=== PATIENT | female | born 1935 | race Caucasian/White ===

== ENCOUNTER 2017-09-18 19:20 | Inpatient (IN) | payer MEDICARE, BC ==
[2017-09-18] MEDS ORDERED: SODIUM CHLORIDE 0.9% 1,000 ML IV STA (19:29)
[2017-09-18] MEDS ORDERED: FUROSEMIDE 10 MG/ML 4 ML VIAL IV STA (19:29)
[2017-09-18] MEDS ORDERED: IPRATROPIUM 0.5 MG/2.5 ML NEBU INHALATION STA (19:29)
[2017-09-18] MEDS ORDERED: ALBUTEROL NEBULIZED 2.5 MG/3 ML INHALATION STA (19:29)
[2017-09-18] MEDS ORDERED: NITROGLYCERIN OINT 1 INCH/GM PACKET TOPICAL STA (19:29)
[2017-09-18] MEDS ORDERED: DILTIAZEM 125 MG in SODIUM CHLORIDE 0.9% 100 ML IV ONE (19:45)
--- NOTE | 2017-09-18 19:45 | XR ---
EXAMINATION TYPE: XR chest 1V portable DATE OF EXAM: 09/18/2017 COMPARISON: NONE HISTORY: Short of breath TECHNIQUE: Single frontal view of the chest is obtained. FINDINGS: There is diffuse pulmonary edema. There is patchy consolidation in both lungs. Thoracic ao rta is atheromatous. There are chest leads. IMPRESSION: Extensive pulmonary infiltrates. I would consider congestive heart failure or RDS.
[2017-09-18 19:48] LABS: Basophils # (A) 0.2 k/uL (0-0.2); Basophils % (A) 1 %; CH 28.6; CHCM 30.5; Eosinophils # (A) 0.2 k/uL (0-0.7); Eosinophils % (A) 1 %; HDW 2.47; HGB 14.6 gm/dL (11.4-16.0); Hypochromasia Moderate; Luc # (Auto) 0.43; Luc % (Auto) 2; MCH 28.6 pg (25.0-35.0); MCHC 30.4 g/dL (31.0-37.0); MCV 94.2 fL (80.0-100.0); Mean Platelet Volume 7.6; Monocytes # (A) 0.9 k/uL (0-1.0); Monocytes % (A) 4 %; Neutrophils # (A) 13.4 k/uL (1.3-7.7); Neutrophils % (A) 56 %; RDW 14.8 % (11.5-15.5); WBC 24.1 k/uL (3.8-10.6); WBC (Perox) 22.68
[2017-09-18 19:51] LABS: Lymphocytes % (A) 37 %
[2017-09-18 19:54] LABS: ALT 33 U/L (9-52); AST 23 U/L (14-36); Alkaline Phosphatase 133 U/L (38-126); Anion Gap 14 mmol/L; Blood Urea Nitrogen 19 mg/dL (7-17); Calcium 9.6 mg/dL (8.4-10.2); Carbon Dioxide 22 mmol/L (22-30); Chloride 102 mmol/L (98-107); Glucose 261 mg/dL (74-99); Non-African American GFR(MDRD) >60 (>60 ml/min/1.73 sqM); Potassium 4.4 mmol/L (3.5-5.1); Sodium 138 mmol/L (137-145); Total Bilirubin 1.7 mg/dL (0.2-1.3)
[2017-09-18] MEDS ORDERED: cefTRIAXone IN SWFI 2,000 MG/20 ML SYRINGE IVP STA (20:12)
[2017-09-18] MEDS ORDERED: LORazepam 2 MG/ML INJ IV STA (20:12)
[2017-09-18 20:14] LABS: Creatine Kinase MB 1.8 ng/mL (0.0-2.4)
[2017-09-18] MEDS ORDERED: AZITHROMYCIN 500 MG in SODIUM CHLORIDE 0.9% 250 ML IVPB STA (20:14)
[2017-09-18 20:15] LABS: INR 2.3 (<1.2); Prothrombin Time 21.8 sec (9.0-12.0)
[2017-09-18 20:16] LABS: ABG HCO3 24 mmol/L (21-25); ABG PCO2 45 mmHg (35-45); ABG PH 7.34 (7.35-7.45); ABG PO2 141 mmHg (83-108); ABG TCO2 25 mmol/L (19-24)
[2017-09-18 20:17] LABS: ABG Base Excess -1.4 mmol/L
[2017-09-18 20:19] LABS: Troponin I 0.06 ng/mL (0.000-0.034)
[2017-09-18] MEDS ORDERED: RX INFO: IV CONTRAST WAS GIVEN 1 EACH MISC MISCELLANE PRN (21:09)
[2017-09-18] MEDS ORDERED: PIPERACILLIN-TAZOBACTAM 3.375 GM in DEXTROSE/WATER 1 50ML.BAG IVPB STA (21:19)
--- NOTE | 2017-09-18 21:20 | ED ---
SOB HPI - General Chief Complaint: Shortness of Breath Stated Complaint: LUCIANO Time Seen by Provider: 09/18/17 19:28 Source: patient, family Mode of arrival: wheelchair Limitations: physical limitation - History of Present Illness Initial Comments: 81 years old female was with her daughter today daughter noticed that she was coughing last night she had A breathing and a she was she was spitting up some phlegm she also noticed her heart rate was quite fast she had a bit of a fever as well. On her way to the aspirin she developed some chest pain to that when she arrived she was quite dyspneic and she was not in a position to give any review of system this was from her daughter she stated no headaches no neck stiffness severe shortness of breath mild chest pain no abdominal pain no frequency urgency dysuria no symptoms of TIA or CVA - Related Data Home Medications Medication Instructions Recorded Confirmed Acetaminophen [Tylenol] 325 mg PO Q4H PRN 09/18/17 09/18/17 Aspirin [Adult Low Dose Aspirin EC] 81 mg PO DAILY 09/18/17 09/18/17 Atorvastatin Calcium [Lipitor] 20 mg PO DAILY 09/18/17 09/18/17 Cholecalciferol [Vitamin D3] 2,000 unit PO DAILY 09/18/17 09/18/17 Cranberry Fruit Extract [Cranberry] 200 mg PO BID 09/18/17 09/18/17 Digoxin [Lanoxin] 125 mcg PO DAILY 09/18/17 09/18/17 Diltiazem HCl [Diltiazem ER] 180 mg PO DAILY 09/18/17 09/18/17 Ferrous Sulfate [Iron] 325 mg PO BID 09/18/17 09/18/17 Furosemide [Lasix] 40 mg PO DAILY 09/18/17 09/18/17 Insulin Glargine,Hum.rec.anlog 32 unit SQ HS 09/18/17 09/18/17 [Lantus Solostar] Insulin Glargine,Hum.rec.anlog 33 unit SQ DAILY 09/18/17 09/18/17 [Lantus Solostar] L.acidoph,Paracasei, B.lactis 1 cap PO BID 09/18/17 09/18/17 [Probiotic] Magnesium Chloride [Mag64] 64 mg PO DAILY 09/18/17 09/18/17 Metoprolol Tartrate [Lopressor] 50 mg PO BID 09/18/17 09/18/17 Multivitamins, Thera [Multivitamin 1 tab PO DAILY 09/18/17 09/18/17 (formulary)] Omeprazole [PriLOSEC] 20 mg PO BID 09/18/17 09/18/17 Potassium Chloride [Klor-Con 20] 20 meq PO DAILY 09/18/17 09/18/17 Vit C/E/Zn/Coppr/Lutein/Zeaxan 1 cap PO DAILY 09/18/17 09/18/17 [Preservision Areds 2 Softgel] Warfarin Sodium 1 mg PO MOWEFR 09/18/17 09/18/17 Warfarin Sodium [Coumadin] 6 mg PO DAILY 09/18/17 09/18/17 glipiZIDE [Glucotrol] 2.5 mg PO BID 09/18/17 09/18/17 Allergies Allergy/AdvReac Type Severity Reaction Status Date / Time codeine Allergy Confusion Verified 09/18/17 19:36 Review of Systems ROS Statement: Those systems with pertinent positive or pertinent negative responses have been documented in the HPI. ROS Other: All systems not noted in ROS Statement are negative. Past Medical History Past Medical History: CVA/TIA, Diabetes Mellitus, Deep Vein Thrombosis (DVT), Hypertension Additional Past Medical History / Comment(s): AFIB History of Any Multi-Drug Resistant Organisms: None Reported Past Surgical History: Unable to Obtain Additional Past Surgical History / Comment(s): eyes Past Psychological History: No Psychological Hx Reported Smoking Status: Unknown if ever smoked Past Alcohol Use History: None Reported Past Drug Use History: None Reported General Exam - General Exam Comments Initial Comments: General: The patient is awake and severe distress respiratory rate is very fast having hard time talking Skin: Skin is warm and dry and no rashes or lesions are noted. Eye: Pupils are equal, round and reactive to light, extra-ocular movements are intact; there is normal conjunctiva bilaterally. Ears, nose, mouth and throat: There are moist mucous membranes and no oral lesions. Neck: The neck is supple, there is no tenderness pos JVD. Cardiovascular: There is a regular heartbeat and is quite fast Respiratory: To auscultation lateral noticed crackles at the bases Gastrointestinal: Soft, non-distended, non-tender abdomen without masses or organomegaly noted. There is no rebound or guarding present. Bowel sounds are unremarkable. Back: There is no tenderness to palpation in the midline. There is no obvious deformity. Musculoskeletal: Normal ROM, no tenderness, There is no pedal edema. There is no calf tenderness or swelling. No cords were appreciated. Neurological: CN II-XII intact, Cranial nerves III through XII are intact. There are no obvious motor or sensory deficits. Coordination appears grossly intact. Speech is normal. Psychiatric: Cooperative, appropriate mood & affect, normal judgment. Limitations: physical limitation Course Vital Signs 09/18/17 09/18/17 09/18/17 19:23 20:00 20:12 Temperature Pulse Rate 150 H 128 H 138 H Respiratory 34 H Rate Blood Pressure 154/96 O2 Sat by Pulse 80 L Oximetry 09/18/17 09/18/17 09/18/17 20:13 20:23 20:25 Temperature Pulse Rate 138 H 140 H 148 H Respiratory 30 H Rate Blood Pressure O2 Sat by Pulse Oximetry 09/18/17 21:17 Temperature 99.9 F H Pulse Rate 133 H Respiratory 20 Rate Blood Pressure 106/64 O2 Sat by Pulse 93 L Oximetry Him EKG is a defibrillation with the rapid ventricular response ventricular rate is 145 QRS duration is 138 QT/QTc is 324/503 and 50 mL EKG is full of artifact this is the complex is some block like ventricular tachycardia as well looks like intraventricular block we've and definitely looks like a wide- complex with that there is a question of for block as well 8 to looks like a block Medical Decision Making - Lab Data Result diagrams: 09/18/17 19:30 09/18/17 19:30 Lab Results 09/18/17 09/18/17 09/18/17 Range/Units 19:30 19:30 19:30 WBC 24.1 H (3.8-10.6) k/uL RBC 5.10 (3.80-5.40) m/uL Hgb 14.6 (11.4-16.0) gm/dL Hct 48.0 H (34.0-46.0) % MCV 94.2 (80.0-100.0) fL MCH 28.6 (25.0-35.0) pg MCHC 30.4 L (31.0-37.0) g/dL RDW 14.8 (11.5-15.5) % Plt Count 284 (150-450) k/uL Neutrophils % 56 % Lymphocytes % 37 % Monocytes % 4 % Eosinophils % 1 % Basophils % 1 % Neutrophils # 13.4 H (1.3-7.7) k/uL Lymphocytes # 9.0 H (1.0-4.8) k/uL Monocytes # 0.9 (0-1.0) k/uL Eosinophils # 0.2 (0-0.7) k/uL Basophils # 0.2 (0-0.2) k/uL Hypochromasia Moderate PT (9.0-12.0) sec INR (<1.2) APTT (22.0-30.0) sec D-Dimer (<0.60) mg/L FEU Sample Site ABG pH (7.35-7.45) ABG pCO2 (35-45) mmHg ABG pO2 (83-108) mmHg ABG HCO3 (21-25) mmol/L ABG Total CO2 (19-24) mmol/L ABG O2 Saturation (94-97) % ABG Base Excess mmol/L FiO2 % Sodium 138 (137-145) mmol/L Potassium 4.4 (3.5-5.1) mmol/L Chloride 102 (98-107) mmol/L Carbon Dioxide 22 (22-30) mmol/L Anion Gap 14 mmol/L BUN 19 H (7-17) mg/dL Creatinine 0.70 (0.52-1.04) mg/dL Est GFR (MDRD) Af Amer >60 (>60 ml/min/1.73 sqM) Est GFR (MDRD) Non-Af >60 (>60 ml/min/1.73 sqM) Glucose 261 H (74-99) mg/dL Calcium 9.6 (8.4-10.2) mg/dL Total Bilirubin 1.7 H (0.2-1.3) mg/dL AST 23 (14-36) U/L ALT 33 (9-52) U/L Alkaline Phosphatase 133 H (38-126) U/L Total Creatine Kinase 96 (30-135) U/L CK-MB (CK-2) 1.8 (0.0-2.4) ng/mL CK-MB (CK-2) Rel Index 1.9 Troponin I 0.060 H* (0.000-0.034) ng/mL NT-Pro-B Natriuret Pep pg/mL Total Protein 8.0 (6.3-8.2) g/dL Albumin 4.3 (3.5-5.0) g/dL 09/18/17 09/18/17 09/18/17 Range/Units 19:30 19:30 19:55 WBC (3.8-10.6) k/uL RBC (3.80-5.40) m/uL Hgb (11.4-16.0) gm/dL Hct (34.0-46.0) % MCV (80.0-100.0) fL MCH (25.0-35.0) pg MCHC (31.0-37.0) g/dL RDW (11.5-15.5) % Plt Count (150-450) k/uL Neutrophils % % Lymphocytes % % Monocytes % % Eosinophils % % Basophils % % Neutrophils # (1.3-7.7) k/uL Lymphocytes # (1.0-4.8) k/uL Monocytes # (0-1.0) k/uL Eosinophils # (0-0.7) k/uL Basophils # (0-0.2) k/uL Hypochromasia PT 21.8 H (9.0-12.0) sec INR 2.3 H (<1.2) APTT 30.0 (22.0-30.0) sec D-Dimer 0.78 H (<0.60) mg/L FEU Sample Site RRAD ABG pH 7.34 L (7.35-7.45) ABG pCO2 45 (35-45) mmHg ABG pO2 141 H (83-108) mmHg ABG HCO3 24 (21-25) mmol/L ABG Total CO2 25 H (19-24) mmol/L ABG O2 Saturation 99.0 H (94-97) % ABG Base Excess -1.4 mmol/L FiO2 100 % Sodium (137-145) mmol/L Potassium (3.5-5.1) mmol/L Chloride (98-107) mmol/L Carbon Dioxide (22-30) mmol/L Anion Gap mmol/L BUN (7-17) mg/dL Creatinine (0.52-1.04) mg/dL Est GFR (MDRD) Af Amer (>60 ml/min/1.73 sqM) Est GFR (MDRD) Non-Af (>60 ml/min/1.73 sqM) Glucose (74-99) mg/dL Calcium (8.4-10.2) mg/dL Total Bilirubin (0.2-1.3) mg/dL AST (14-36) U/L ALT (9-52) U/L Alkaline Phosphatase (38-126) U/L Total Creatine Kinase (30-135) U/L CK-MB (CK-2) (0.0-2.4) ng/mL CK-MB (CK-2) Rel Index Troponin I (0.000-0.034) ng/mL NT-Pro-B Natriuret Pep 2280 pg/mL Total Protein (6.3-8.2) g/dL Albumin (3.5-5.0) g/dL Critical Care Time Total Critical Care Time: 60 Critical Care Time: 82 years old lady came in respiratory failure, respiratory rate was approaching 30 she was using accessory muscles auscultation revealed congestive heart failure she was started on a BiPAP right away will be dictated the nitro paste and a she was given Lasix 60 mg IV later noticed that she has atrial fibrillation with rapid ventricular response at that point the Cardizem drip was started and review of the chest x-ray revealed pneumonia as well as congestive heart failure block and after the chest x-ray she was started on now Rocephin and Zithromax per worse noticed white count was quite elevated Rocephin was changed to Zosyn BNP is quite elevated troponin is quite elevated plan to send her to ICU Dr. Gaviria or has been paged patient be admitted to Dr. Palm I spoke with him already and definitely profiler consulted, she is on Coumadin INR is 2.3 she is noted be on any heparin and/or d-dimer is quite elevated Disposition Clinical Impression: Respiratory failure, Pneumonia, Atrial fibrillation with RVR, Myocardial infarction Disposition: ADMITTED IP TO THIS HOSP Condition: Good Referrals: Karl Bennett MD [Primary Care Provider] - 1-2 days
[2017-09-18] MEDS ORDERED: NALOXONE 0.4 MG/ML 1 ML VIAL IV PRN (21:31)
[2017-09-18] MEDS ORDERED: MORPHINE SULFATE 10 MG/ML SYRINGE IV PRN (21:31)
--- NOTE | 2017-09-18 22:19 | CT ---
EXAMINATION TYPE: CT angio chest DATE OF EXAM: 09/18/2017 9:55 PM COMPARISON: NONE HISTORY: Shortness of breath CT DLP: 574.8 mGycm Automated exposure control for dose reduction was used. CONTRAST: CTA scan of the thorax is performed with IV Contrast, patient injected with 100 mL of Omnipaque 350, pulmonary embolism protocol. There are 3-D post processed images.. FINDINGS: There are bilateral pleural effusions. There is bilateral patchy pneumonic consolidation. There is ex tensive groundglass interstitial infiltrate in the mid and upper lung roger. There is coalescent den sity in both lungs. The thoracic aorta is atheromatous. There is no sign of aneurysm or dissection. Heart is enlarged. I see no filling defects in the pulmonary arteries. There is thoracic kyphotic deformity with hypertr ophic spurring anteriorly throughout the thoracic spine. IMPRESSION: ATHEROMATOUS AORTA. PLEURAL EFFUSIONS WITH EXTENSIVE BILATERAL PULMONARY INFILTRATES CONSISTENT WITH HEART FAILURE AND RDS. NO EVIDENCE OF PULMONARY EMBOLISM.
[2017-09-18 22:42] LABS: Glucose,Whole Blood 225 mg/dL (75-99)
[2017-09-19] MEDS ORDERED: DIGOXIN 250 MCG/ML 2 ML AMP IVP ONE (00:09)
[2017-09-19] MEDS ORDERED: DIGOXIN 250 MCG/ML 2 ML AMP ONE (00:42)
[2017-09-19] MEDS ORDERED: LORazepam 2 MG/ML INJ IV PRN (01:32)
[2017-09-19 01:45] LABS: Glucose,Whole Blood 212 mg/dL (75-99)
[2017-09-19 01:55] LABS: Appearance,Urine Cloudy (Clear); Bacteria,Urine Rare /hpf; Bilirubin,Urine Negative (Negative); Glucose,Urine (UA) Negative (Negative); Granular Casts,Urine 44 /lpf (0); Ketones,Urine Negative (Negative); Leukocyte Esterase,Urine Large (Negative); Mucus,Urine Rare /hpf; Nitrite,Urine Negative (Negative); PH, Urine 5.5 (5.0-8.0); Particle Count 6685; Protein,Urine 1+ (Negative); RBC,Urine 7 /hpf (0-5); Specific Gravity,Urine 1.031 (1.001-1.035); Squamous Epithelial Cell,Urine 2 /hpf (0-4); UA Billing (MACRO vs. MICRO) MICRO; Urobilinogen,Urine <2.0 mg/dL (<2.0); WBC,Urine 25 /hpf (0-5)
[2017-09-19] MEDS: INSULIN ASPART 100 UNIT/ML 1 ML 10 ML VIAL SQ SCH ×5 (02:16→20:50)
[2017-09-19 05:28] LABS: Anisocytosis Slight; Basophils # (A) 0.1 k/uL (0-0.2); Basophils % (A) 1 %; CH 27.8; CHCM 30.7; Eosinophils # (A) 0.1 k/uL (0-0.7); Eosinophils % (A) 1 %; HCT 38.2 % (34.0-46.0); HDW 2.29; HGB 11.7 gm/dL (11.4-16.0); Hypochromasia Slight; Luc # (Auto) 0.17; Luc % (Auto) 2; Lymphocytes # (A) 2.3 k/uL (1.0-4.8); Lymphocytes % (A) 22 %; MCH 27.9 pg (25.0-35.0); MCHC 30.7 g/dL (31.0-37.0); MCV 91.1 fL (80.0-100.0); Mean Platelet Volume 8.1; Monocytes # (A) 0.7 k/uL (0-1.0); Monocytes % (A) 7 %; Neutrophils # (A) 7.3 k/uL (1.3-7.7); Neutrophils % (A) 69 %; RBC 4.19 m/uL (3.80-5.40); RDW 16.1 % (11.5-15.5); WBC 10.5 k/uL (3.8-10.6); WBC (Perox) 11.11
[2017-09-19 05:38] LABS: ALT 32 U/L (9-52); AST 21 U/L (14-36); Alkaline Phosphatase 79 U/L (38-126); Anion Gap 6 mmol/L; Blood Urea Nitrogen 24 mg/dL (7-17); Calcium 8.3 mg/dL (8.4-10.2); Carbon Dioxide 28 mmol/L (22-30); Chloride 104 mmol/L (98-107); Glucose 165 mg/dL (74-99); Magnesium 1.7 mg/dL (1.6-2.3); Non-African American GFR(MDRD) >60 (>60 ml/min/1.73 sqM); Phosphorus 5.2 mg/dL (2.5-4.5); Potassium 4.5 mmol/L (3.5-5.1); Sodium 138 mmol/L (137-145); Total Bilirubin 1.1 mg/dL (0.2-1.3); Total Protein 5.9 g/dL (6.3-8.2)
[2017-09-19] MEDS ORDERED: Magnesium Replacement Protocol 1 EACH MISC MISCELLANE PRN (06:47)
[2017-09-19 06:56] LABS: Glucose,Whole Blood 156 mg/dL (75-99)
--- NOTE | 2017-09-19 07:04 | XR ---
EXAMINATION TYPE: XR chest 1V portable DATE OF EXAM: 09/19/2017 CLINICAL HISTORY: Difficulty breathing progress study. TECHNIQUE: Single AP portable upright view of the chest is obtained. COMPARISON: Chest x-ray and CTA chest from one day earlier FINDINGS: There is interval persistent but improving bilateral multifocal areas of opacity. There ar e persistent small bilateral pleural effusions and cardiomegaly with atherosclerotic thoracic aorta. Bilateral hilar prominence consistent with underlying pulmonary artery hypertension is redemonstrated . Osseous structures are intact. IMPRESSION: Persistent cardiomegaly and small bilateral pleural effusions felt stable. Improving but persistent multifocal bilateral edema and/or infiltrates are noted.
[2017-09-19] MEDS: BUDESONIDE 0.5 MG/2 ML NEBU INHALATION SCH ×2 (07:45→20:05)
[2017-09-19] MEDS: IPRATROPIUM-ALBUTEROL 3 ML NEB INHALATION PRN ×4 (07:45→20:05)
[2017-09-19] MEDS: MAGNESIUM SULFATE-D5W PMX 1 GM in DEXTROSE/WATER 1 100ML.BAG IVPB SCH ×2 (08:01→09:38)
[2017-09-19] MEDS ORDERED: DILTIAZEM HCL 180 MG PO SCH (09:00)
[2017-09-19] MEDS ORDERED: FUROSEMIDE 40 MG TAB PO SCH (09:00)
[2017-09-19] MEDS ORDERED: NON-FORMULARY DRUG (Cranberry Fruit Extract [Cranberry] 200 MG) PO SCH (09:00)
[2017-09-19] MEDS: FUROSEMIDE 10 MG/ML 4 ML VIAL IV SCH ×3 (09:37→23:23)
[2017-09-19] MEDS: PANTOPRAZOLE 40 MG TABLET PO SCH ×3 (10:07→17:49)
[2017-09-19] MEDS: PIPERACILLIN-TAZOBACTAM 3.375 GM in DEXTROSE/WATER 1 50ML.BAG IVPB SCH ×3 (10:21→23:29)
[2017-09-19] MEDS: DILTIAZEM 125 MG in SODIUM CHLORIDE 0.9% 100 ML IV SCH ×2 (10:26→23:22)
[2017-09-19] MEDS: FERROUS SULFATE 325 MG TAB PO SCH ×2 (10:28→20:37)
[2017-09-19] MEDS: cefTRIAXone IN SWFI 1,000 MG/10 ML SYRINGE IVP SCH (10:28)
[2017-09-19] MEDS: ATORVASTATIN 20 MG TAB PO SCH (10:28)
[2017-09-19] MEDS: ASPIRIN 81 MG PO SCH (10:28)
[2017-09-19] MEDS: LACTOBACILLUS ACIDOPH & BULGAR 1 EACH PACKET PO SCH ×2 (10:29→20:36)
[2017-09-19] MEDS: POTASSIUM CHLORIDE ER 20 MEQ TAB.ER PO SCH ×2 (10:30→10:51)
[2017-09-19] MEDS: VIT A,C & E-LUTEIN-MINERALS 1 EACH TAB PO SCH ×2 (10:31→13:46)
[2017-09-19 10:49] LABS: Glucose,Whole Blood 151 mg/dL (75-99)
[2017-09-19] MEDS: DIGOXIN 125 MCG TAB PO SCH ×2 (10:52→11:31)
[2017-09-19] MEDS: METOPROLOL TARTRATE 50 MG TAB PO SCH ×4 (10:52→23:22)
[2017-09-19] MEDS: INSULIN DETEMIR 100 UNIT/ML 10 ML VIAL SQ SCH ×2 (10:52→20:37)
--- NOTE | 2017-09-19 11:32 | P.CRDCN ---
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 The patient has been experiencing cough productive of sputum associated with fever. She was more short of breath. She also describes what it seems to be atypical chest discomfort. The symptoms started just 24 hours before she was brought to the hospital. No dizziness or lightheadedness and no syncope. When she came in to the hospital she was in A. fib with RVR and currently she is in A. fib with heart rate around 100. She is on Cardizem IV at 10 mg per hour and she is on metoprolol at 50 mg by mouth twice a day. The patient is on Coumadin for anticoagulation. The patient had a chest x-ray showed what it seems to be bilateral pleural effusion and CHF finding. The EKG revealed A. fib with RVR. The BNP came in to be around 3000s. The cardiac enzymes were checked and came in to be slightly abnormal. The patient does have significant murmur seems to be consistent with aortic stenosis. Past Medical History Past Medical History: Atrial Fibrillation, Heart Failure, CVA/TIA, Diabetes Mellitus, Deep Vein Thrombosis (DVT), Eye Disorder, Hyperlipidemia, Hypertension , Sleep Apnea/CPAP/BIPAP Additional Past Medical History / Comment(s): AFIB History of Any Multi-Drug Resistant Organisms: None Reported Past Surgical History: Unable to Obtain Additional Past Surgical History / Comment(s): Hallie filter Past Anesthesia/Blood Transfusion Reactions: Unable to Obtain Past Psychological History: No Psychological Hx Reported Smoking Status: Unknown if ever smoked Past Alcohol Use History: None Reported Past Drug Use History: None Reported Medications and Allergies Home Medications Medication Instructions Recorded Confirmed Type Acetaminophen [Tylenol] 325 mg PO Q4H PRN 09/18/17 09/18/17 History Aspirin [Adult Low Dose Aspirin EC] 81 mg PO DAILY 09/18/17 09/18/17 History Atorvastatin Calcium [Lipitor] 20 mg PO DAILY 09/18/17 09/18/17 History Cholecalciferol [Vitamin D3] 2,000 unit PO DAILY 09/18/17 09/18/17 History Cranberry Fruit Extract [Cranberry] 200 mg PO BID 09/18/17 09/18/17 History Digoxin [Lanoxin] 125 mcg PO DAILY 09/18/17 09/18/17 History Diltiazem HCl [Diltiazem ER] 180 mg PO DAILY 09/18/17 09/18/17 History Ferrous Sulfate [Iron] 325 mg PO BID 09/18/17 09/18/17 History Furosemide [Lasix] 40 mg PO DAILY 09/18/17 09/18/17 History Insulin Glargine,Hum.rec.anlog 32 unit SQ HS 09/18/17 09/18/17 History [Lantus Solostar] Insulin Glargine,Hum.rec.anlog 33 unit SQ DAILY 09/18/17 09/18/17 History [Lantus Solostar] L.acidoph,Paracasei, B.lactis 1 cap PO BID 09/18/17 09/18/17 History [Probiotic] Magnesium Chloride [Mag64] 64 mg PO DAILY 09/18/17 09/18/17 History Metoprolol Tartrate [Lopressor] 50 mg PO BID 09/18/17 09/18/17 History Multivitamins, Thera [Multivitamin 1 tab PO DAILY 09/18/17 09/18/17 History (formulary)] Omeprazole [PriLOSEC] 20 mg PO BID 09/18/17 09/18/17 History Potassium Chloride [Klor-Con 20] 20 meq PO DAILY 09/18/17 09/18/17 History Vit C/E/Zn/Coppr/Lutein/Zeaxan 1 cap PO DAILY 09/18/17 09/18/17 History [Preservision Areds 2 Softgel] Warfarin Sodium 1 mg PO MOWEFR 09/18/17 09/18/17 History Warfarin Sodium [Coumadin] 6 mg PO DAILY 09/18/17 09/18/17 History glipiZIDE [Glucotrol] 2.5 mg PO BID 09/18/17 09/18/17 History Allergies Allergy/AdvReac Type Severity Reaction Status Date / Time codeine Allergy Confusion Verified 09/18/17 19:36 Physical Exam Vitals: Vital Signs Temp Pulse Resp BP BP Pulse Ox 09/19/17 10:00 92 22 123/58 96 09/19/17 09:30 87 24 128/62 95 09/19/17 09:00 86 24 115/51 95 09/19/17 08:30 92 21 125/56 96 09/19/17 08:05 97 09/19/17 08:00 89 29 H 127/52 98 09/19/17 07:45 92 09/19/17 07:30 93 25 H 140/63 98 09/19/17 07:00 103 H 30 H 125/50 97 09/19/17 06:30 93 23 111/46 93 L 09/19/17 06:00 87 17 125/75 98 09/19/17 05:30 79 34 H 107/64 98 09/19/17 05:00 86 25 H 132/58 97 09/19/17 04:30 89 26 H 107/55 98 09/19/17 04:00 98.1 F 90 26 H 106/46 96 09/19/17 03:30 98 25 H 90/49 94 L 09/19/17 03:00 100 24 113/49 93 L 09/19/17 02:30 86 26 H 104/61 97 09/19/17 02:00 96 24 99/44 89 L 09/19/17 01:30 96 26 H 120/55 97 09/19/17 01:00 107 H 30 H 109/60 95 09/19/17 00:30 107 H 25 H 118/66 97 09/19/17 00:00 128 H 29 H 97 09/18/17 23:30 118 H 25 H 94/59 96 09/18/17 23:00 98.2 F 131 H 30 H 100/54 96 09/18/17 22:49 98.2 F 18 100/54 98 09/18/17 22:42 146 H 30 H 96 09/18/17 21:17 99.9 F H 133 H 20 106/64 93 L 09/18/17 20:25 148 H 09/18/17 20:23 140 H 09/18/17 20:13 138 H 30 H 09/18/17 20:12 138 H 09/18/17 20:00 99.9 F H 128 H 09/18/17 19:23 150 H 34 H 154/96 80 L Intake and Output 09/18/17 09/19/17 09/19/17 22:59 06:59 14:59 Intake Total 450 300 Output Total 425 315 Balance 25 -15 Intake: IV 400 70 Sodium Chloride 0.9% 1, 400 70 000 ml @ 50 mls/hr IV . Q20H [facility] Rx#:[id number] Intake, IV Titration 50 230 Amount Diltiazem 125 mg In 30 Sodium Chloride 0.9% 100 ml @ 10 MG/HR 10 mls/hr IV .[id number] ONE Rx#: [id number] Magnesium Sulfate-D5w Pmx 200 1 gm In Dextrose/Water 1 100ml.bag @ 100 mls/hr IVPB Q1H [facility] Rx#: [id number] Piperacillin-Tazobactam 3 50 .375 gm In Dextrose/Water 1 50ml.bag @ 12.5 mls/hr IVPB Q8HR [facility] Rx#: [id number] Output: Urine 425 315 Other: Voiding Method Indwelling Catheter Indwelling Catheter # Voids 0 Weight 110.8 kg 110.8 kg - Constitutional General appearance: no acute distress - Respiratory Respiratory: bilateral: rhonchi - Cardiovascular Rhythm: irregularly irregular Heart sounds: normal: S1 Abnormal Heart Sounds: systolic murmur Results 09/19/17 05:08 09/19/17 05:08 Cardiac Enzymes 09/18/17 09/18/17 09/19/17 Range/Units 19:30 19:30 05:08 AST 23 21 (14-36) U/L CK-MB (CK-2) 1.8 (0.0-2.4) ng/mL Troponin I 0.060 H* (0.000-0.034) ng/mL Coagulation 09/18/17 Range/Units 19:30 PT 21.8 H (9.0-12.0) sec APTT 30.0 (22.0-30.0) sec CBC 09/18/17 09/19/17 Range/Units 19:30 05:08 WBC 24.1 H 10.5 (3.8-10.6) k/uL RBC 5.10 4.19 (3.80-5.40) m/uL Hgb 14.6 11.7 (11.4-16.0) gm/dL Hct 48.0 H 38.2 (34.0-46.0) % Plt Count 284 204 (150-450) k/uL Comprehensive Metabolic Panel 09/18/17 09/19/17 Range/Units 19:30 05:08 Sodium 138 138 (137-145) mmol/L Potassium 4.4 4.5 (3.5-5.1) mmol/L Chloride 102 104 (98-107) mmol/L Carbon Dioxide 22 28 (22-30) mmol/L BUN 19 H 24 H (7-17) mg/dL Creatinine 0.70 0.80 (0.52-1.04) mg/dL Glucose 261 H 165 H (74-99) mg/dL Calcium 9.6 8.3 L (8.4-10.2) mg/dL AST 23 21 (14-36) U/L ALT 33 32 (9-52) U/L Alkaline Phosphatase 133 H 79 (38-126) U/L Total Protein 8.0 5.9 L (6.3-8.2) g/dL Albumin 4.3 3.0 L (3.5-5.0) g/dL Current Medications Generic Name Dose Route Start Last Admin Trade Name Jagq PRN Reason Stop Dose Admin Acetaminophen 650 mg 09/18/17 21:31 Tylenol Tab PO Q4HR PRN Fever and/or Mild Pain Albuterol/Ipratropium 3 ml 09/18/17 21:31 09/19/17 07:45 Duoneb 0.5 Mg-3 Mg/3 Ml Soln INHALATION 3 ml RT-Q4H PRN Administration Shortness Of Breath Or Wheezing Aspirin 81 mg 09/19/17 09:00 09/19/17 10:28 Aspirin PO 81 mg DAILY [facility] Administration Atorvastatin Calcium 20 mg 09/19/17 09:00 09/19/17 10:28 Lipitor PO 20 mg DAILY [facility] Administration Budesonide 0.5 mg 09/19/17 08:00 09/19/17 07:45 Pulmicort INHALATION 0.5 mg RT-BID MARC Administration Ceftriaxone Sodium 1,000 mg 09/19/17 09:00 09/19/17 10:28 Rocephin IVP 1,000 mg Q24HR [facility] Administration Cholecalciferol 2,000 unit 09/19/17 12:00 Vitamin D3 PO 1200 [facility] Digoxin 125 mcg 09/19/17 09:00 09/19/17 10:52 Lanoxin PO Not Given DAILY [facility] Ferrous Sulfate 325 mg 09/19/17 09:00 09/19/17 10:28 Feosol PO 325 mg BID M[facility] Administration Furosemide 40 mg 09/19/17 08:00 09/19/17 09:37 Lasix IV 40 mg Q8HR [facility] Administration Glipizide 2.5 mg 09/19/17 07:30 09/19/17 10:57 Glucotrol PO Not Given AC-BID [facility] Sodium Chloride 1,000 mls @ 50 mls/hr 09/18/17 19:29 09/18/17 19:35 Saline 0.9% IV 09/19/17 15:28 50 mls/hr .Q20H [facility] Administration Piperacillin/Tazobactam/ 50 mls @ 12.5 mls/hr 09/19/17 08:00 09/19/17 10:21 Dextrose 3.375 gm/ IV Solution IVPB 12.5 mls/hr Q8HR [facility] Administration Diltiazem HCl 125 mg/ Sodium 125 mls @ 10 mls/hr 09/19/17 10:30 09/19/17 10: 26 Chloride IV 10 mg/hr .[id number] [facility] 10 mls/hr 10 MG/HR Administration Insulin Aspart 0 unit 09/19/17 12:30 Novolog SQ ACHS [facility] Protocol Insulin Detemir 32 unit 09/19/17 21:00 Levemir SQ HS [facility] Insulin Detemir 33 unit 09/19/17 09:00 09/19/17 10:52 Levemir SQ 33 unit DAILY [facility] Administration Lactobacillus Acidoph/Bulgaricus 1 each 09/19/17 09:00 09/19/17 10:29 Lactinex PO 1 each BID [facility] Administration Lorazepam 0.5 mg 09/19/17 01:32 09/19/17 02:03 Ativan IV 0.5 mg Q8HR PRN Administration Anxiety Magnesium Oxide 400 mg 09/19/17 12:00 Mag-Ox PO 1200 [facility] Metoprolol Tartrate 50 mg 09/19/17 09:00 09/19/17 10:52 Lopressor PO Not Given BID M[facility] Miscellaneous Information 1 each 09/18/17 21:09 Rx Info: Iv Contrast Was Given MISCELLANE 09/20/17 21:09 DAILY PRN Per Protocol Miscellaneous Information 1 each 09/19/17 06:47 Magnesium Per Protocol MISCELLANE DAILY PRN Per Protocol Protocol Morphine Sulfate 2 mg 09/18/17 21:31 Morphine Sulfate (Inj) IV Q2HR PRN Pain Scale 4 to 5 Multivitamins 1 each 09/19/17 12:00 Theragran PO 1200 [facility] Multivitamins/Minerals 1 each 09/19/17 09:00 09/19/17 10:31 Ivite PO 1 each 1200 [facility] Administration Naloxone HCl 0.2 mg 09/18/17 21:31 Narcan IV Q2M PRN Opioid Reversal Pantoprazole Sodium 40 mg 09/19/17 07:30 09/19/17 10:38 Protonix PO 40 mg AC-BID [facility] Administration Potassium Chloride 20 meq 09/19/17 09:00 09/19/17 10:51 K-Dur 20 PO 20 meq DAILY [facility] Administration Intake and Output 09/18/17 09/19/17 09/19/17 22:59 06:59 14:59 Intake Total 450 300 Output Total 425 315 Balance 25 -15 Intake: IV 400 70 Sodium Chloride 0.9% 1, 400 70 000 ml @ 50 mls/hr IV . Q20H [facility] Rx#:[id number] Intake, IV Titration 50 230 Amount Diltiazem 125 mg In 30 Sodium Chloride 0.9% 100 ml @ 10 MG/HR 10 mls/hr IV .[id number] [facility] Rx#: [id number] Magnesium Sulfate-D5w Pmx 200 1 gm In Dextrose/Water 1 100ml.bag @ 100 mls/hr IVPB Q1H [facility] Rx#: [id number] Piperacillin-Tazobactam 3 50 .375 gm In Dextrose/Water 1 50ml.bag @ 12.5 mls/hr IVPB Q8HR [facility] Rx#: [id number] Output: Urine 425 315 Other: Voiding Method Indwelling Catheter Indwelling Catheter # Voids 0 Weight 110.8 kg 110.8 kg 09/19/17 05:08 09/19/17 05:08 Assessment and Plan Assessment: This is a pleasant 82-year-old female patient who was admitted to the hospital with acute on chronic respiratory failure secondary to pneumonia as well as congestive heart failure exacerbation and known if this due to systolic or diastolic dysfunction at this point of time. We'll continue diuresing the patient using Lasix IV with continue monitoring the kidney function and electrolytes as well as continue monitoring the input and output and weight. Beside that she is on Cardizem IV which I am trying to wean her from and increase the dose of metoprolol by mouth. She is on anticoagulation at home with Coumadin which we will resume. The abnormal cardiac enzymes are likely secondary to A. fib with RVR as well as mildly abnormal kidney function, in absence of chest pain and ischemic EKG changes. I will obtain an echocardiogram was Doppler as well to assess the LV systolic end-diastolic function and aortic valve. We'll continue following up with her.
[2017-09-19] MEDS: CHOLECALCIFEROL 1,000 UNIT TAB PO SCH (13:46)
[2017-09-19] MEDS: MAGNESIUM OXIDE 400 MG TAB PO SCH (13:46)
[2017-09-19] MEDS: MULTIVITAMINS, THERA 1 EACH TAB PO SCH (13:46)
--- NOTE | 2017-09-19 14:16 | P.CNPUL ---
History of Present Illness Consult date: 09/19/17 Reason for consult: pleural effusion, other (Congestive heart failure) Chief complaint: Difficulty breathing History of present illness: This is an 82-year-old female with history of chronic atrial fibrillation, congestive heart failure, diabetes, deep vein thrombosis, hyperlipidemia, hypertension, obstructive sleep apnea syndrome, history of CVA/TIA, patient usually follows with a electric needle specialist out of town. Patient was brought into the ER by family last night complaining of worsening shortness of breath. Patient was also complaining of cough, no fever, no chills, no hemoptysis, no chest pain , no nausea, no vomiting, no abdominal pain, no melena, no hematemesis. Patient also complained of some vague chest discomfort. Chest x-ray was clearly consistent with pulmonary edema, possibility of underlying pneumonia was not entirely ruled out, will attempt to be less likely. This is based on the fact that the patient improved significantly with diuresis overnight, and chest x-ray showed dramatic improvement but not complete clearance of her interstitial edema. Patient was seen by cardiology on consultation, she was kept on Cardizem at 10 mg per hour for her A. fib with RVR, and she was kept on metoprolol at 50 mg by mouth twice a day. Patient is already on anticoagulation in the form of Coumadin. Her EKG showed atrial fibrillation with RVR, her BNP was significantly elevated. And her cardiac enzymes were noted to be slightly abnormal with troponin of 0.06 on admission. The patient herself is a poor historian, however most of the history was obtained from daughter at bedside. Review of Systems 14 point review of systems were obtained from the daughter, please refer to pertinent positives and negatives in HPI, otherwise remaining systems are negative. Past Medical History Past Medical History: Atrial Fibrillation, Heart Failure, CVA/TIA, Diabetes Mellitus, Deep Vein Thrombosis (DVT), Eye Disorder, Hyperlipidemia, Hypertension , Sleep Apnea/CPAP/BIPAP Additional Past Medical History / Comment(s): AFIB History of Any Multi-Drug Resistant Organisms: None Reported Past Surgical History: Unable to Obtain Additional Past Surgical History / Comment(s): Hallie filter Past Anesthesia/Blood Transfusion Reactions: Unable to Obtain Past Psychological History: No Psychological Hx Reported Smoking Status: Unknown if ever smoked Past Alcohol Use History: None Reported Past Drug Use History: None Reported Medications and Allergies Home Medications Medication Instructions Recorded Confirmed Type Acetaminophen [Tylenol] 325 mg PO Q4H PRN 09/18/17 09/18/17 History Aspirin [Adult Low Dose Aspirin EC] 81 mg PO DAILY 09/18/17 09/18/17 History Atorvastatin Calcium [Lipitor] 20 mg PO DAILY 09/18/17 09/18/17 History Cholecalciferol [Vitamin D3] 2,000 unit PO DAILY 09/18/17 09/18/17 History Cranberry Fruit Extract [Cranberry] 200 mg PO BID 09/18/17 09/18/17 History Digoxin [Lanoxin] 125 mcg PO DAILY 09/18/17 09/18/17 History Diltiazem HCl [Diltiazem ER] 180 mg PO DAILY 09/18/17 09/18/17 History Ferrous Sulfate [Iron] 325 mg PO BID 09/18/17 09/18/17 History Furosemide [Lasix] 40 mg PO DAILY 09/18/17 09/18/17 History Insulin Glargine,Hum.rec.anlog 32 unit SQ HS 09/18/17 09/18/17 History [Lantus Solostar] Insulin Glargine,Hum.rec.anlog 33 unit SQ DAILY 09/18/17 09/18/17 History [Lantus Solostar] L.acidoph,Paracasei, B.lactis 1 cap PO BID 09/18/17 09/18/17 History [Probiotic] Magnesium Chloride [Mag64] 64 mg PO DAILY 09/18/17 09/18/17 History Metoprolol Tartrate [Lopressor] 50 mg PO BID 09/18/17 09/18/17 History Multivitamins, Thera [Multivitamin 1 tab PO DAILY 09/18/17 09/18/17 History (formulary)] Omeprazole [PriLOSEC] 20 mg PO BID 09/18/17 09/18/17 History Potassium Chloride [Klor-Con 20] 20 meq PO DAILY 09/18/17 09/18/17 History Vit C/E/Zn/Coppr/Lutein/Zeaxan 1 cap PO DAILY 09/18/17 09/18/17 History [Preservision Areds 2 Softgel] Warfarin Sodium 1 mg PO MOWEFR 09/18/17 09/18/17 History Warfarin Sodium [Coumadin] 6 mg PO DAILY 09/18/17 09/18/17 History glipiZIDE [Glucotrol] 2.5 mg PO BID 09/18/17 09/18/17 History Allergies Allergy/AdvReac Type Severity Reaction Status Date / Time codeine Allergy Confusion Verified 09/18/17 19:36 Physical Exam Vitals: Vital Signs Temp Pulse Resp BP BP Pulse Ox 09/19/17 13:00 87 24 84/50 91 L 09/19/17 12:30 77 18 129/54 95 09/19/17 12:00 75 21 121/53 97 09/19/17 11:47 94 09/19/17 11:32 88 09/19/17 11:30 90 23 103/51 94 L 09/19/17 11:00 84 28 H 141/62 98 09/19/17 10:30 84 29 H 114/58 94 L 09/19/17 10:00 92 22 123/58 96 09/19/17 09:30 87 24 128/62 95 09/19/17 09:00 86 24 115/51 95 09/19/17 08:30 92 21 125/56 96 09/19/17 08:05 97 09/19/17 08:00 89 29 H 127/52 98 09/19/17 07:45 92 09/19/17 07:30 93 25 H 140/63 98 09/19/17 07:00 103 H 30 H 125/50 97 09/19/17 06:30 93 23 111/46 93 L 09/19/17 06:00 87 17 125/75 98 09/19/17 05:30 79 34 H 107/64 98 09/19/17 05:00 86 25 H 132/58 97 09/19/17 04:30 89 26 H 107/55 98 09/19/17 04:00 98.1 F 90 26 H 106/46 96 09/19/17 03:30 98 25 H 90/49 94 L 09/19/17 03:00 100 24 113/49 93 L 09/19/17 02:30 86 26 H 104/61 97 09/19/17 02:00 96 24 99/44 89 L 09/19/17 01:30 96 26 H 120/55 97 09/19/17 01:00 107 H 30 H 109/60 95 09/19/17 00:30 107 H 25 H 118/66 97 09/19/17 00:00 128 H 29 H 97 09/18/17 23:30 118 H 25 H 94/59 96 09/18/17 23:00 98.2 F 131 H 30 H 100/54 96 09/18/17 22:49 98.2 F 18 100/54 98 09/18/17 22:42 146 H 30 H 96 09/18/17 21:17 99.9 F H 133 H 20 106/64 93 L 09/18/17 20:25 148 H 09/18/17 20:23 140 H 09/18/17 20:13 138 H 30 H 09/18/17 20:12 138 H 09/18/17 20:00 99.9 F H 128 H 09/18/17 19:23 150 H 34 H 154/96 80 L Intake and Output 09/18/17 09/19/17 09/19/17 22:59 06:59 14:59 Intake Total 450 428.916 Output Total 425 1015 Balance 25 -586.084 Intake: IV 400 130 Sodium Chloride 0.9% 1, 400 130 000 ml @ 50 mls/hr IV . Q20H [facility] Rx#:[id number] Intake, IV Titration 50 298.916 Amount Diltiazem 125 mg In 45 Sodium Chloride 0.9% 100 ml @ 10 MG/HR 10 mls/hr IV .[id number] Rx#: [id number] Diltiazem 125 mg In 16.416 Sodium Chloride 0.9% 100 ml @ 10 MG/HR 10 mls/hr IV .[id number] [facility] Rx#: [id number] Magnesium Sulfate-D5w Pmx 200 1 gm In Dextrose/Water 1 100ml.bag @ 100 mls/hr IVPB Q1H [facility] Rx#: [id number] Piperacillin-Tazobactam 3 50 37.5 .375 gm In Dextrose/Water 1 50ml.bag @ 12.5 mls/hr IVPB Q8HR [facility] Rx#: [id number] Output: Urine 425 1015 Other: Voiding Method Indwelling Catheter Indwelling Catheter # Voids 0 Weight 110.8 kg 110.8 kg Physical Exam: Revealed an 82-year-old female in mild respiratory distress, presently on a high flow nasal cannula. Head: Normocephalic, atraumatic, HEENT:[ Dry mucous membranes Neck is supple.] [No neck masses.] [No thyromegaly. ] [No JVD.] No icterus was appreciated. Chest: [Crackles at the bases bilaterally, no rhonchi, no wheezes.] Cardiac Exam: [Irregular irregular rhythm. Normal S1 and S2, no S3 gallop, 3/6 systolic murmur over the aortic area noted..] Abdomen: [Soft, nontender, no megaly, no rebound, no guarding, normal bowel sounds.] Extremities: [No clubbing, 1+ bipedal edema, no cyanosis.] Neurological Exam: Slightly lethargic [No gross focal neurologic deficit patient is arousable, seems to be alert and oriented to place Psychiatric: Blunted affect, normal mood, borderline mental status examination. Musculoskeletal: No limitations in range of motion, no deformities, no tenderness. Skin: No rashes, no erythema, no cyanosis. Results - Laboratory Findings CBC and BMP: 09/19/17 05:08 09/19/17 05:08 ABG ABG pH 7.34 (7.35-7.45) L 09/18/17 19:55 ABG pCO2 45 mmHg (35-45) 09/18/17 19:55 ABG pO2 141 mmHg (83-108) H 09/18/17 19:55 ABG O2 Saturation 99.0 % (94-97) H 09/18/17 19:55 PT/INR, D-dimer PT 21.8 sec (9.0-12.0) H 09/18/17 19:30 INR 2.3 (<1.2) H 09/18/17 19:30 D-Dimer 0.78 mg/L FEU (<0.60) H 09/18/17 19:30 Abnormal lab findings: Abnormal Labs 09/18/17 09/18/17 09/18/17 19:30 19:30 19:30 WBC 24.1 H Hct 48.0 H MCHC 30.4 L RDW Neutrophils # 13.4 H Lymphocytes # 9.0 H PT INR D-Dimer ABG pH ABG pO2 ABG Total CO2 ABG O2 Saturation BUN 19 H Glucose 261 H POC Glucose (mg/dL) Plasma Lactic Acid Ha Calcium Phosphorus Total Bilirubin 1.7 H Alkaline Phosphatase 133 H Troponin I 0.060 H* Total Protein Albumin Urine Appearance Urine Protein Ur Leukocyte Esterase Urine RBC Urine WBC Urine Bacteria Urine Mucus Urine Yeast (Budding) 09/18/17 09/18/17 09/18/17 19:30 19:30 19:55 WBC Hct MCHC RDW Neutrophils # Lymphocytes # PT 21.8 H INR 2.3 H D-Dimer 0.78 H ABG pH 7.34 L ABG pO2 141 H ABG Total CO2 25 H ABG O2 Saturation 99.0 H BUN Glucose POC Glucose (mg/dL) Plasma Lactic Acid Ha 4.5 H* Calcium Phosphorus Total Bilirubin Alkaline Phosphatase Troponin I Total Protein Albumin Urine Appearance Urine Protein Ur Leukocyte Esterase Urine RBC Urine WBC Urine Bacteria Urine Mucus Urine Yeast (Budding) 09/18/17 09/19/17 09/19/17 22:41 01:15 01:43 WBC Hct MCHC RDW Neutrophils # Lymphocytes # PT INR D-Dimer ABG pH ABG pO2 ABG Total CO2 ABG O2 Saturation BUN Glucose POC Glucose (mg/dL) 225 H 212 H Plasma Lactic Acid Ha Calcium Phosphorus Total Bilirubin Alkaline Phosphatase Troponin I Total Protein Albumin Urine Appearance Cloudy H Urine Protein 1+ H Ur Leukocyte Esterase Large H Urine RBC 7 H Urine WBC 25 H Urine Bacteria Rare H Urine Mucus Rare H Urine Yeast (Budding) Few H 09/19/17 09/19/17 09/19/17 05:08 05:08 06:55 WBC Hct MCHC 30.7 L RDW 16.1 H Neutrophils # Lymphocytes # PT INR D-Dimer ABG pH ABG pO2 ABG Total CO2 ABG O2 Saturation BUN 24 H Glucose 165 H POC Glucose (mg/dL) 156 H Plasma Lactic Acid Ha Calcium 8.3 L Phosphorus 5.2 H Total Bilirubin Alkaline Phosphatase Troponin I Total Protein 5.9 L Albumin 3.0 L Urine Appearance Urine Protein Ur Leukocyte Esterase Urine RBC Urine WBC Urine Bacteria Urine Mucus Urine Yeast (Budding) 09/19/17 10:47 WBC Hct MCHC RDW Neutrophils # Lymphocytes # PT INR D-Dimer ABG pH ABG pO2 ABG Total CO2 ABG O2 Saturation BUN Glucose POC Glucose (mg/dL) 151 H Plasma Lactic Acid Ha Calcium Phosphorus Total Bilirubin Alkaline Phosphatase Troponin I Total Protein Albumin Urine Appearance Urine Protein Ur Leukocyte Esterase Urine RBC Urine WBC Urine Bacteria Urine Mucus Urine Yeast (Budding) - Diagnostic Findings Chest x-ray: image reviewed Assessment and Plan Assessment: Impression: 1 acute hypoxic respiratory failure secondary to possibly acute systolic congestive heart failure, although her pulmonary edema could be secondary to atrial fibrillation with RVR, and underlying valvular heart disease. Echocardiogram is pending for further clarification of her valvular heart disease and LV function. 2 multiple comorbidities including chronic atrial fibrillation, diabetes, history of deep vein thrombosis, hypertension, obstructive sleep apnea syndrome , valvular heart disease, previous deep vein thromboses and inferior vena cava filter placement. Recommendation: I fully agree with the present treatment plan including diuretics, Cardizem to control the A. fib/RVR, Lanoxin, beta blockers, elevated blood sugar control, continue empiric antibiotics for now, I strongly feel that pneumonia is very less likely. Will likely discontinue antibiotics in the next 24-48 hours. We'll continue to monitor chest x-ray on a daily basis until completely clear. Discussed her condition with her daughter at bedside. We will continue to monitor the patient in the ICU for the next 24 hours. And then will likely arrange for transfer to a monitored bed on selective. Continue GI prophylaxis, continue anticoagulation/Coumadin will follow closely. Time with Patient: Greater than 30
--- NOTE | 2017-09-19 15:43 | P.HPIM ---
History of Present Illness H&P Date: 09/19/17 This is a 82-year-old female with past medical history of atrial fibrillation, regular heart disease, diabetes mellitus type 2, hypertension, dyslipidemia, congestive heart failure, DVT, TRAVON, CVA with residual left-sided weakness who presented to the emergency room accompanied by family after she was seen to have increasing shortness of breath. Patient stated that her symptoms initially began roughly 2 days prior to admission in which she developed a dry cough that was nonproductive of sputum initially that progressively worsened. Patient was noted to have conversational dyspnea with one or 2 words. She had palpitations during the same time frame. On presentation to the emergency room her heart rate was found to be 150 bpm respiratory rate was 34 blood pressure was 154/96 O2 sats were 80% on room air she was given immediate oxygen supplementation, chest x-ray showed possible pneumonia as well as congestive heart failure she was given a dose of Rocephin and Zithromax which was then changed to Zosyn her BNP was elevated at 100, her cardiac enzymes were noted to be slightly abnormal with troponin of 0.06 on admission She was placed intermittently on BiPAP with believe of her shortness of breath she was given IV diuretic patient's white count was noted to be 24.1 patient was seen to have elevated d-dimer a CTA PE protocol was done and did not show any PEs patient was noted to be in Coumadin with therapeutic INR of 2.3 patient had ABG done showed pH of 7.34 pCO2 of 45 pO2 of 141 O2 of 99%. Patient was admitted to the intensive care unit cardiology and pulmonology consultations were obtained both evaluated patient was weaned off the Cardizem drip was placed on beta regis oral in a 3 times a day fashion patient was weaned off the BiPAP placed on green high flow which is current setting at 13 L/m her saturations are 95% she is diuresing well she has 1.4 L of M marcel yellow urine in the [place] she states that her shortness of breath is much improved since admission her swelling lower extremity is somewhat improved. She denies any chest pain or dizziness or lightheadedness she denies any abdominal pain no nausea vomiting constipations or diarrhea Review of Systems All systems: negative Past Medical History Past Medical History: Atrial Fibrillation, Heart Failure, CVA/TIA, Diabetes Mellitus, Deep Vein Thrombosis (DVT), Eye Disorder, Hyperlipidemia, Hypertension , Sleep Apnea/CPAP/BIPAP Additional Past Medical History / Comment(s): AFIB History of Any Multi-Drug Resistant Organisms: None Reported Past Surgical History: Unable to Obtain Additional Past Surgical History / Comment(s): Hallie filter Past Anesthesia/Blood Transfusion Reactions: Unable to Obtain Past Psychological History: No Psychological Hx Reported Smoking Status: Unknown if ever smoked Past Alcohol Use History: None Reported Past Drug Use History: None Reported Medications and Allergies Home Medications Medication Instructions Recorded Confirmed Type Acetaminophen [Tylenol] 325 mg PO Q4H PRN 09/18/17 09/18/17 History Aspirin [Adult Low Dose Aspirin EC] 81 mg PO DAILY 09/18/17 09/18/17 History Atorvastatin Calcium [Lipitor] 20 mg PO DAILY 09/18/17 09/18/17 History Cholecalciferol [Vitamin D3] 2,000 unit PO DAILY 09/18/17 09/18/17 History Cranberry Fruit Extract [Cranberry] 200 mg PO BID 09/18/17 09/18/17 History Digoxin [Lanoxin] 125 mcg PO DAILY 09/18/17 09/18/17 History Diltiazem HCl [Diltiazem ER] 180 mg PO DAILY 09/18/17 09/18/17 History Ferrous Sulfate [Iron] 325 mg PO BID 09/18/17 09/18/17 History Furosemide [Lasix] 40 mg PO DAILY 09/18/17 09/18/17 History Insulin Glargine,Hum.rec.anlog 32 unit SQ HS 09/18/17 09/18/17 History [Lantus Solostar] Insulin Glargine,Hum.rec.anlog 33 unit SQ DAILY 09/18/17 09/18/17 History [Lantus Solostar] L.acidoph,Paracasei, B.lactis 1 cap PO BID 09/18/17 09/18/17 History [Probiotic] Magnesium Chloride [Mag64] 64 mg PO DAILY 09/18/17 09/18/17 History Metoprolol Tartrate [Lopressor] 50 mg PO BID 09/18/17 09/18/17 History Multivitamins, Thera [Multivitamin 1 tab PO DAILY 09/18/17 09/18/17 History (formulary)] Omeprazole [PriLOSEC] 20 mg PO BID 09/18/17 09/18/17 History Potassium Chloride [Klor-Con 20] 20 meq PO DAILY 09/18/17 09/18/17 History Vit C/E/Zn/Coppr/Lutein/Zeaxan 1 cap PO DAILY 09/18/17 09/18/17 History [Preservision Areds 2 Softgel] Warfarin Sodium 1 mg PO MOWEFR 09/18/17 09/18/17 History Warfarin Sodium [Coumadin] 6 mg PO DAILY 09/18/17 09/18/17 History glipiZIDE [Glucotrol] 2.5 mg PO BID 09/18/17 09/18/17 History Allergies Allergy/AdvReac Type Severity Reaction Status Date / Time codeine Allergy Confusion Verified 09/18/17 19:36 Physical Exam Vitals: Vital Signs Temp Pulse Resp BP BP Pulse Ox 09/19/17 14:00 90 25 H 84/46 92 L 09/19/17 13:00 87 24 84/50 91 L 09/19/17 12:30 77 18 129/54 95 09/19/17 12:00 75 21 121/53 97 09/19/17 11:47 94 09/19/17 11:32 88 09/19/17 11:30 90 23 103/51 94 L 09/19/17 11:00 84 28 H 141/62 98 09/19/17 10:30 84 29 H 114/58 94 L 09/19/17 10:00 92 22 123/58 96 09/19/17 09:30 87 24 128/62 95 09/19/17 09:00 86 24 115/51 95 09/19/17 08:30 92 21 125/56 96 09/19/17 08:05 97 09/19/17 08:00 89 29 H 127/52 98 09/19/17 07:45 92 09/19/17 07:30 93 25 H 140/63 98 09/19/17 07:00 103 H 30 H 125/50 97 09/19/17 06:30 93 23 111/46 93 L 09/19/17 06:00 87 17 125/75 98 09/19/17 05:30 79 34 H 107/64 98 09/19/17 05:00 86 25 H 132/58 97 09/19/17 04:30 89 26 H 107/55 98 09/19/17 04:00 98.1 F 90 26 H 106/46 96 09/19/17 03:30 98 25 H 90/49 94 L 09/19/17 03:00 100 24 113/49 93 L 09/19/17 02:30 86 26 H 104/61 97 09/19/17 02:00 96 24 99/44 89 L 09/19/17 01:30 96 26 H 120/55 97 09/19/17 01:00 107 H 30 H 109/60 95 09/19/17 00:30 107 H 25 H 118/66 97 09/19/17 00:00 128 H 29 H 97 09/18/17 23:30 118 H 25 H 94/59 96 09/18/17 23:00 98.2 F 131 H 30 H 100/54 96 09/18/17 22:49 98.2 F 18 100/54 98 09/18/17 22:42 146 H 30 H 96 09/18/17 21:17 99.9 F H 133 H 20 106/64 93 L 09/18/17 20:25 148 H 09/18/17 20:23 140 H 09/18/17 20:13 138 H 30 H 09/18/17 20:12 138 H 09/18/17 20:00 99.9 F H 128 H 09/18/17 19:23 150 H 34 H 154/96 80 L Intake and Output 09/19/17 09/19/17 09/19/17 06:59 14:59 22:59 Intake Total 450 461.416 Output Total 425 1115 Balance 25 -653.584 Intake: IV 400 150 Sodium Chloride 0.9% 1, 400 150 000 ml @ 20 mls/hr IV . Q24H [facility] Rx#:[id number] Intake, IV Titration 50 311.416 Amount Diltiazem 125 mg In 45 Sodium Chloride 0.9% 100 ml @ 10 MG/HR 10 mls/hr IV .[id number] [facility] Rx#: [id number] Diltiazem 125 mg In 16.416 Sodium Chloride 0.9% 100 ml @ 10 MG/HR 10 mls/hr IV .[id number] [facility] Rx#: [id number] Magnesium Sulfate-D5w Pmx 200 1 gm In Dextrose/Water 1 100ml.bag @ 100 mls/hr IVPB Q1H [facility] Rx#: [id number] Piperacillin-Tazobactam 3 50 50.0 .375 gm In Dextrose/Water 1 50ml.bag @ 12.5 mls/hr IVPB Q8HR [facility] Rx#: [id number] Output: Urine 425 1115 Other: Voiding Method Indwelling Catheter Indwelling Catheter # Voids 0 Weight 110.8 kg Physical Exam: This is 82-year-old female who is awake alert oriented 3 in no acute distress she was seen to be sleeping upon entering the room and awoken to verbal stimuli she is calm and cooperative nontoxic appearing no diaphoresis Head: Normocephalic, atraumatic, HEENT: Dry mucous membranes Neck is supple. No neck masses No thyromegaly+ JVD. No icterus was appreciated. Chest: Lateral air entry with Crackles at the bases bilaterally, no rhonchi, no wheezes. No conversational dyspnea Cardiac Exam: [Irregular irregular rhythm. Normal S1 and S2, no S3 gallop, 3/6 systolic murmur over the aortic area noted..] Abdomen: [Soft, nontender, no megaly, no rebound, no guarding, normal bowel sounds.] Extremities: No clubbing,no cyanosis.] Neurological Exam: Slightly lethargic patient has left facial droop, no dysarthria hypoactive reflexes on left extremity normoactive throughout. Tongue is midline speech is clear and coherent contextual Psychiatric: No depression or anxiety noted Musculoskeletal: Patient has evidence of left-sided hemiparesis with diminished strength. Her left upper extremity has evidence thenar muscle wasting, her movement of the left upper extremity is at the shoulder joint she is unable to flex or extend the wrist sure sensory is intact DIPs are flexed with extension of MCPs and a contracted position. Skin: No rashes, no erythema, no cyanosis. Results CBC & Chem 7: 09/19/17 05:08 09/19/17 05:08 Labs: Abnormal Lab Results - Last 24 Hours (Table) 09/18/17 09/18/17 09/18/17 Range/Units 19:30 19:30 19:30 WBC 24.1 H (3.8-10.6) k/uL Hct 48.0 H (34.0-46.0) % MCHC 30.4 L (31.0-37.0) g/dL RDW (11.5-15.5) % Neutrophils # 13.4 H (1.3-7.7) k/uL Lymphocytes # 9.0 H (1.0-4.8) k/uL PT (9.0-12.0) sec INR (<1.2) D-Dimer (<0.60) mg/L FEU ABG pH (7.35-7.45) ABG pO2 (83-108) mmHg ABG Total CO2 (19-24) mmol/L ABG O2 Saturation (94-97) % BUN 19 H (7-17) mg/dL Glucose 261 H (74-99) mg/dL POC Glucose (mg/dL) (75-99) mg/dL Hemoglobin A1c (4.0-6.0) % Plasma Lactic Acid Ha (0.7-2.0) mmol/L Calcium (8.4-10.2) mg/dL Phosphorus (2.5-4.5) mg/dL Total Bilirubin 1.7 H (0.2-1.3) mg/dL Alkaline Phosphatase 133 H (38-126) U/L Troponin I 0.060 H* (0.000-0.034) ng/mL Total Protein (6.3-8.2) g/dL Albumin (3.5-5.0) g/dL Urine Appearance (Clear) Urine Protein (Negative) Ur Leukocyte Esterase (Negative) Urine RBC (0-5) /hpf Urine WBC (0-5) /hpf Urine Bacteria (None) /hpf Urine Mucus (None) /hpf Urine Yeast (Budding) (None) /hpf 09/18/17 09/18/17 09/18/17 Range/Units 19:30 19:30 19:55 WBC (3.8-10.6) k/uL Hct (34.0-46.0) % MCHC (31.0-37.0) g/dL RDW (11.5-15.5) % Neutrophils # (1.3-7.7) k/uL Lymphocytes # (1.0-4.8) k/uL PT 21.8 H (9.0-12.0) sec INR 2.3 H (<1.2) D-Dimer 0.78 H (<0.60) mg/L FEU ABG pH 7.34 L (7.35-7.45) ABG pO2 141 H (83-108) mmHg ABG Total CO2 25 H (19-24) mmol/L ABG O2 Saturation 99.0 H (94-97) % BUN (7-17) mg/dL Glucose (74-99) mg/dL POC Glucose (mg/dL) (75-99) mg/dL Hemoglobin A1c (4.0-6.0) % Plasma Lactic Acid Ha 4.5 H* (0.7-2.0) mmol/L Calcium (8.4-10.2) mg/dL Phosphorus (2.5-4.5) mg/dL Total Bilirubin (0.2-1.3) mg/dL Alkaline Phosphatase (38-126) U/L Troponin I (0.000-0.034) ng/mL Total Protein (6.3-8.2) g/dL Albumin (3.5-5.0) g/dL Urine Appearance (Clear) Urine Protein (Negative) Ur Leukocyte Esterase (Negative) Urine RBC (0-5) /hpf Urine WBC (0-5) /hpf Urine Bacteria (None) /hpf Urine Mucus (None) /hpf Urine Yeast (Budding) (None) /hpf 09/18/17 09/19/17 09/19/17 Range/Units 22:41 01:15 01:43 WBC (3.8-10.6) k/uL Hct (34.0-46.0) % MCHC (31.0-37.0) g/dL RDW (11.5-15.5) % Neutrophils # (1.3-7.7) k/uL Lymphocytes # (1.0-4.8) k/uL PT (9.0-12.0) sec INR (<1.2) D-Dimer (<0.60) mg/L FEU ABG pH (7.35-7.45) ABG pO2 (83-108) mmHg ABG Total CO2 (19-24) mmol/L ABG O2 Saturation (94-97) % BUN (7-17) mg/dL Glucose (74-99) mg/dL POC Glucose (mg/dL) 225 H 212 H (75-99) mg/dL Hemoglobin A1c (4.0-6.0) % Plasma Lactic Acid Ha (0.7-2.0) mmol/L Calcium (8.4-10.2) mg/dL Phosphorus (2.5-4.5) mg/dL Total Bilirubin (0.2-1.3) mg/dL Alkaline Phosphatase (38-126) U/L Troponin I (0.000-0.034) ng/mL Total Protein (6.3-8.2) g/dL Albumin (3.5-5.0) g/dL Urine Appearance Cloudy H (Clear) Urine Protein 1+ H (Negative) Ur Leukocyte Esterase Large H (Negative) Urine RBC 7 H (0-5) /hpf Urine WBC 25 H (0-5) /hpf Urine Bacteria Rare H (None) /hpf Urine Mucus Rare H (None) /hpf Urine Yeast (Budding) Few H (None) /hpf 09/19/17 09/19/17 09/19/17 Range/Units 05:08 05:08 05:08 WBC (3.8-10.6) k/uL Hct (34.0-46.0) % MCHC 30.7 L (31.0-37.0) g/dL RDW 16.1 H (11.5-15.5) % Neutrophils # (1.3-7.7) k/uL Lymphocytes # (1.0-4.8) k/uL PT (9.0-12.0) sec INR (<1.2) D-Dimer (<0.60) mg/L FEU ABG pH (7.35-7.45) ABG pO2 (83-108) mmHg ABG Total CO2 (19-24) mmol/L ABG O2 Saturation (94-97) % BUN 24 H (7-17) mg/dL Glucose 165 H (74-99) mg/dL POC Glucose (mg/dL) (75-99) mg/dL Hemoglobin A1c 6.5 H (4.0-6.0) % Plasma Lactic Acid Ha (0.7-2.0) mmol/L Calcium 8.3 L (8.4-10.2) mg/dL Phosphorus 5.2 H (2.5-4.5) mg/dL Total Bilirubin (0.2-1.3) mg/dL Alkaline Phosphatase (38-126) U/L Troponin I (0.000-0.034) ng/mL Total Protein 5.9 L (6.3-8.2) g/dL Albumin 3.0 L (3.5-5.0) g/dL Urine Appearance (Clear) Urine Protein (Negative) Ur Leukocyte Esterase (Negative) Urine RBC (0-5) /hpf Urine WBC (0-5) /hpf Urine Bacteria (None) /hpf Urine Mucus (None) /hpf Urine Yeast (Budding) (None) /hpf 09/19/17 09/19/17 Range/Units 06:55 10:47 WBC (3.8-10.6) k/uL Hct (34.0-46.0) % MCHC (31.0-37.0) g/dL RDW (11.5-15.5) % Neutrophils # (1.3-7.7) k/uL Lymphocytes # (1.0-4.8) k/uL PT (9.0-12.0) sec INR (<1.2) D-Dimer (<0.60) mg/L FEU ABG pH (7.35-7.45) ABG pO2 (83-108) mmHg ABG Total CO2 (19-24) mmol/L ABG O2 Saturation (94-97) % BUN (7-17) mg/dL Glucose (74-99) mg/dL POC Glucose (mg/dL) 156 H 151 H (75-99) mg/dL Hemoglobin A1c (4.0-6.0) % Plasma Lactic Acid Ha (0.7-2.0) mmol/L Calcium (8.4-10.2) mg/dL Phosphorus (2.5-4.5) mg/dL Total Bilirubin (0.2-1.3) mg/dL Alkaline Phosphatase (38-126) U/L Troponin I (0.000-0.034) ng/mL Total Protein (6.3-8.2) g/dL Albumin (3.5-5.0) g/dL Urine Appearance (Clear) Urine Protein (Negative) Ur Leukocyte Esterase (Negative) Urine RBC (0-5) /hpf Urine WBC (0-5) /hpf Urine Bacteria (None) /hpf Urine Mucus (None) /hpf Urine Yeast (Budding) (None) /hpf Microbiology - Last 24 Hours (Table) 09/19/17 01:15 Urine Culture - Preliminary Urine,Catheterized Chest x-ray: report reviewed CT scan - chest: report reviewed Thrombosis Risk Factor Assmnt - Choose All That Apply Each Factor Represents 1 point: Medical pt on bed rest, Obesity (BMI >25) Other Risk Factors: Yes Each Risk Factor Represents 3 Points: Age 75 years or older, History of DVT/PE Thrombosis Risk Factor Assessment Total Risk Factor Score: 8 Thrombosis Risk Factor Assessment Level: High Risk Assessment and Plan Assessment: 1 acute hypoxic respiratory failure secondary acute systolic congestive heart failure, patient is currently on 13 L high flow O2 she is satting 95% cardiology and pulmonology have been counseled patient to be weaned off her oxygen per protocol patients have a chest x-ray in the a.m. continue the IV diuresis with Lasix as ordered patient was noted to diuresis 1.4 L since 7 AM, echocardiogram has been ordered to determine whether systolic or diastolic results are pending, patient to initiate incentive spirometer patient on IV antibiotics as directed by pulmonology clinic 24-48 hrs. to cover for any underlying pneumonia that could be superimposed on CHF however this could be unlikely sounds are rapid recovery of her pulmonary status and white count within 24 hours 2 Paroxysmal Atrial fibrillation with rapid ventricular response status post Cardizem infusion and GTT, this has since been weaned off patient is currently in atrial fibrillation with controlled rate beta blockers have been adjusted per cardiology recommendations patient is on anticoagulation for chest score greater than 2 Coumadin is dosed according to pharmacy with targeted INR of 2-3 patient to continue cardiac telemetry 3 diabetes mellitus type II with insulin use for greater than 1 year presents with hyperglycemia, this could be reactive component patient had hemoglobin A1c checked patient's to be have a glucose monitored before meals at bedtime with targeted blood sugar goals of 140-180 she should be placed some mild insulin sliding scale will make adjustments pertaining to her overall consumption need 4 elevated troponin likely in the setting of an NSTEMI type II due to demand ischemia from tachycardia. Cartilage on Board agree with tachycardia-induced will continue to monitor 5 hypertension, blood pressure to be monitored as her beta blockers have been increased due to rate control which will affect her blood pressure 6 obstructive sleep apnea syndrome, patient instructed to family bring CPAP as if she will likely start requiring it once she is triaged on the unit 7 valvular heart disease, cardiology on board continue management. 8 history of deep vein thrombosis, and inferior vena cava filter placement. Patient is currently on Coumadin. Time with Patient: Greater than 30
[2017-09-19] MEDS: WARFARIN 3 MG TAB PO SCH (17:50)
[2017-09-19 17:53] LABS: Glucose,Whole Blood 123 mg/dL (75-99)
[2017-09-19 20:43] LABS: Glucose,Whole Blood 179 mg/dL (75-99)
[2017-09-20] MEDS: ACETAMINOPHEN TAB 325 MG TAB PO PRN (02:17)
[2017-09-20 05:25] LABS: Basophils % (A) 1 %; CH 27.6; Eosinophils # (A) 0.2 k/uL (0-0.7); Eosinophils % (A) 3 %; HDW 2.29; HGB 11.1 gm/dL (11.4-16.0); Hypochromasia Slight; Luc # (Auto) 0.17; Luc % (Auto) 2; Lymphocytes # (A) 1.6 k/uL (1.0-4.8); Lymphocytes % (A) 18 %; MCH 28.3 pg (25.0-35.0); MCHC 31.6 g/dL (31.0-37.0); MCV 89.6 fL (80.0-100.0); Mean Platelet Volume 7.8; Monocytes # (A) 0.6 k/uL (0-1.0); Monocytes % (A) 7 %; Neutrophils # (A) 6.2 k/uL (1.3-7.7); Neutrophils % (A) 70 %; RDW 15.8 % (11.5-15.5); WBC 8.9 k/uL (3.8-10.6); WBC (Perox) 9.47
[2017-09-20 05:42] LABS: Anion Gap 4 mmol/L; Blood Urea Nitrogen 22 mg/dL (7-17); Calcium 8.3 mg/dL (8.4-10.2); Carbon Dioxide 33 mmol/L (22-30); Chloride 99 mmol/L (98-107); Glucose 51 mg/dL (74-99); Magnesium 1.8 mg/dL (1.6-2.3); Non-African American GFR(MDRD) >60 (>60 ml/min/1.73 sqM); Phosphorus 4.1 mg/dL (2.5-4.5); Potassium 3.9 mmol/L (3.5-5.1); Sodium 136 mmol/L (137-145)
[2017-09-20 05:54] LABS: Glucose,Whole Blood 71 mg/dL (75-99)
[2017-09-20] MEDS: BUDESONIDE 0.5 MG/2 ML NEBU INHALATION SCH ×2 (07:04→20:59)
[2017-09-20] MEDS: IPRATROPIUM-ALBUTEROL 3 ML NEB INHALATION PRN ×3 (07:04→20:59)
[2017-09-20 07:35] LABS: Glucose,Whole Blood 107 mg/dL (75-99)
--- NOTE | 2017-09-20 09:06 | XR ---
EXAMINATION TYPE: XR chest 1V portable DATE OF EXAM: 09/20/2017 COMPARISON: 09/19/2017 INDICATION: CHF TECHNIQUE: Single frontal view of the chest is obtained. FINDINGS: The heart size is mildly prominent. The pulmonary vasculature is prominent. Diffuse increased alveolar infiltrate is present greater at the bases. No pleural effusions are not e xcluded. IMPRESSION: 1. Findings can be compatible with congestive heart failure in the proper clinical setting. Findings appear stable over the interval.
[2017-09-20] MEDS: ASPIRIN 81 MG PO SCH (09:22)
[2017-09-20] MEDS: FUROSEMIDE 10 MG/ML 4 ML VIAL IV SCH ×3 (09:22→23:43)
[2017-09-20] MEDS: INSULIN ASPART 100 UNIT/ML 1 ML 10 ML VIAL SQ SCH ×4 (09:23→21:16)
[2017-09-20] MEDS: PANTOPRAZOLE 40 MG TABLET PO SCH ×2 (09:23→17:15)
[2017-09-20] MEDS: POTASSIUM CHLORIDE ER 20 MEQ TAB.ER PO SCH (09:23)
[2017-09-20] MEDS: DIGOXIN 125 MCG TAB PO SCH (09:24)
[2017-09-20] MEDS: FERROUS SULFATE 325 MG TAB PO SCH ×2 (09:29→21:09)
[2017-09-20] MEDS: ATORVASTATIN 20 MG TAB PO SCH (09:29)
[2017-09-20] MEDS: METOPROLOL TARTRATE 50 MG TAB PO SCH ×4 (09:31→21:10)
[2017-09-20] MEDS: INSULIN DETEMIR 100 UNIT/ML 10 ML VIAL SQ SCH ×2 (09:31→21:09)
[2017-09-20] MEDS: LACTOBACILLUS ACIDOPH & BULGAR 1 EACH PACKET PO SCH ×2 (09:31→21:10)
[2017-09-20] MEDS: cefTRIAXone IN SWFI 1,000 MG/10 ML SYRINGE IVP SCH (09:38)
[2017-09-20] MEDS: PIPERACILLIN-TAZOBACTAM 3.375 GM in DEXTROSE/WATER 1 50ML.BAG IVPB SCH ×3 (10:14→23:43)
[2017-09-20] MEDS: MAGNESIUM SULFATE-D5W PMX 1 GM in DEXTROSE/WATER 1 100ML.BAG IVPB SCH ×2 (10:14→10:36)
--- NOTE | 2017-09-20 10:32 | P.PN ---
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 The patient has been experiencing cough productive of sputum associated with fever. She was more short of breath. She also describes what it seems to be atypical chest discomfort. The symptoms started just 24 hours before she was brought to the hospital. No dizziness or lightheadedness and no syncope. When she came in to the hospital she was in A. fib with RVR and currently she is in A. fib with heart rate around 100. She is on Cardizem IV at 10 mg per hour and she is on metoprolol at 50 mg by mouth twice a day. The patient is on Coumadin for anticoagulation. The patient had a chest x-ray showed what it seems to be bilateral pleural effusion and CHF finding. The EKG revealed A. fib with RVR. The BNP came in to be around 3000s. The cardiac enzymes were checked and came in to be slightly abnormal. On follow-up with the patient today on September 20, she is feeling better and denies having any chest discomfort and the shortness of breath has improved. The heart rate has improved as well as. The chest x-ray continues to show finding consistent with CHF and I would continue the Lasix IV for now. She's of Cardizem and drip and she is currently on metoprolol by mouth. Also she is on Coumadin. Objective - Vital Signs Vital signs: Vital Signs Temp 97.9 F 09/20/17 08:00 Pulse 84 09/20/17 09:00 Resp 23 09/20/17 09:00 BP 105/46 09/20/17 09:00 Pulse Ox 94 L 09/20/17 09:00 Intake & Output 09/19/17 09/20/17 09/20/17 18:59 06:59 18:59 Intake Total 538.916 860 Output Total 7855 6535 175 Balance -1551.084 -1815 -175 Weight 110.1 kg Intake: IV 190 220 Sodium Chloride 0.9% 1, 190 220 000 ml @ 20 mls/hr IV . Q24H [facility] Rx#:[id number] Intake, IV Titration 348.916 Amount Diltiazem 125 mg In 45 Sodium Chloride 0.9% 100 ml @ 10 MG/HR 10 mls/hr IV .[id number] [facility] Rx#: [id number] Diltiazem 125 mg In 16.416 Sodium Chloride 0.9% 100 ml @ 10 MG/HR 10 mls/hr IV .[id number] [facility] Rx#: [id number] Magnesium Sulfate-D5w Pmx 200 1 gm In Dextrose/Water 1 100ml.bag @ 100 mls/hr IVPB Q1H [facility] Rx#: [id number] Piperacillin-Tazobactam 3 87.5 .375 gm In Dextrose/Water 1 50ml.bag @ 12.5 mls/hr IVPB Q8HR [facility] Rx#: [id number] Oral 640 Output: Urine 2090 2675 175 Other: Voiding Method Indwelling Catheter Indwelling Catheter Indwelling Catheter # Voids 0 - Constitutional General appearance: Present: no acute distress - Respiratory Respiratory: bilateral: rales - Cardiovascular Rhythm: irregularly irregular Heart sounds: normal: S1, S2 Abnormal Heart Sounds: Present: systolic murmur - Labs CBC & Chem 7: 09/20/17 04:52 09/20/17 04:52 Labs: Abnormal Lab Results - Last 24 Hours (Table) 09/19/17 09/19/17 09/19/17 Range/Units 05:08 10:47 17:48 Hgb (11.4-16.0) gm/dL RDW (11.5-15.5) % Sodium (137-145) mmol/L Carbon Dioxide (22-30) mmol/L BUN (7-17) mg/dL Glucose (74-99) mg/dL POC Glucose (mg/dL) 151 H 123 H (75-99) mg/dL Hemoglobin A1c 6.5 H (4.0-6.0) % Calcium (8.4-10.2) mg/dL 09/19/17 09/20/17 09/20/17 Range/Units 20:40 04:52 04:52 Hgb 11.1 L (11.4-16.0) gm/dL RDW 15.8 H (11.5-15.5) % Sodium 136 L (137-145) mmol/L Carbon Dioxide 33 H (22-30) mmol/L BUN 22 H (7-17) mg/dL Glucose 51 L (74-99) mg/dL POC Glucose (mg/dL) 179 H (75-99) mg/dL Hemoglobin A1c (4.0-6.0) % Calcium 8.3 L (8.4-10.2) mg/dL 09/20/17 09/20/17 Range/Units 05:52 07:34 Hgb (11.4-16.0) gm/dL RDW (11.5-15.5) % Sodium (137-145) mmol/L Carbon Dioxide (22-30) mmol/L BUN (7-17) mg/dL Glucose (74-99) mg/dL POC Glucose (mg/dL) 71 L 107 H (75-99) mg/dL Hemoglobin A1c (4.0-6.0) % Calcium (8.4-10.2) mg/dL Microbiology - Last 24 Hours (Table) 09/18/17 19:30 Blood Culture - Preliminary Blood No Growth after 24 hours 09/19/17 01:15 Urine Culture - Preliminary Urine,Catheterized Assessment and Plan Assessment: This is a pleasant 82-year-old female patient who was admitted to the hospital with acute on chronic respiratory failure secondary to pneumonia as well as congestive heart failure exacerbation and known if this due to systolic or diastolic dysfunction at this point of time. The patient continues to have crackles on physical examination and I would continue the Lasix IV for now. The heart rate has improved. She is off Cardizem IV and she is on metoprolol and Coumadin. Was still waiting for the echocardiogram results to assess for the systolic murmur which is likely consistent with aortic stenosis. We'll continue following up with the patient
--- NOTE | 2017-09-20 12:17 | P.PN ---
Subjective Progress Note Date: 09/20/17 Principal diagnosis: Acute systolic congestive heart failure This is an 82-year-old female with history of chronic atrial fibrillation, congestive heart failure, diabetes, deep vein thrombosis, hyperlipidemia, hypertension, obstructive sleep apnea syndrome, history of CVA/TIA, patient usually follows with a photographer still out of town. Patient was brought into the ER by family last night complaining of worsening shortness of breath. Patient was also complaining of cough, no fever, no chills, no hemoptysis, no chest pain , no nausea, no vomiting, no abdominal pain, no melena, no hematemesis. Patient also complained of some vague chest discomfort. Chest x-ray was clearly consistent with pulmonary edema, possibility of underlying pneumonia was not entirely ruled out, will attempt to be less likely. This is based on the fact that the patient improved significantly with diuresis overnight, and chest x-ray showed dramatic improvement but not complete clearance of her interstitial edema. Patient was seen by cardiology on consultation, she was kept on Cardizem at 10 mg per hour for her A. fib with RVR, and she was kept on metoprolol at 50 mg by mouth twice a day. Patient is already on anticoagulation in the form of Coumadin. Her EKG showed atrial fibrillation with RVR, her BNP was significantly elevated. And her cardiac enzymes were noted to be slightly abnormal with troponin of 0.06 on admission. The patient herself is a poor historian, however most of the history was obtained from daughter at bedside. Patient was reevaluated today on 09/20/2017, seems to be significantly improved. She is more alert oriented 3, she is denying any shortness of breath , continues to have significant urine output, she is at least negative by 2 L. Chest x-ray continues to show improvement but not completely resolved pulmonary edema noted. Possibility of underlying pneumonia is not entirely ruled out but felt to be much less likely. Objective - Vital Signs Vital signs: Vital Signs Temp 97.9 F 09/20/17 08:00 Pulse 84 09/20/17 09:00 Resp 23 09/20/17 09:00 BP 105/46 09/20/17 09:00 Pulse Ox 94 L 09/20/17 09:00 Intake & Output 09/19/17 09/20/17 09/20/17 18:59 06:59 18:59 Intake Total 538.916 860 Output Total 20895 175 Balance -1551.084 -1815 -175 Weight 110.1 kg 110.1 kg Intake: IV 190 220 Sodium Chloride 0.9% 1, 190 220 000 ml @ 20 mls/hr IV . Q24H [facility] Rx#:[id number] Intake, IV Titration 348.916 Amount Diltiazem 125 mg In 45 Sodium Chloride 0.9% 100 ml @ 10 MG/HR 10 mls/hr IV .[id number] [facility] Rx#: [id number] Diltiazem 125 mg In 16.416 Sodium Chloride 0.9% 100 ml @ 10 MG/HR 10 mls/hr IV .[id number] [facility] Rx#: [id number] Magnesium Sulfate-D5w Pmx 200 1 gm In Dextrose/Water 1 100ml.bag @ 100 mls/hr IVPB Q1H [facility] Rx#: [id number] Piperacillin-Tazobactam 3 87.5 .375 gm In Dextrose/Water 1 50ml.bag @ 12.5 mls/hr IVPB Q8HR [facility] Rx#: [id number] Oral 640 Output: Urine 2089 2674 175 Other: Voiding Method Indwelling Catheter Indwelling Catheter Indwelling Catheter # Voids 0 - Exam Physical Exam: Revealed an 82-year-old female in no form of respiratory distress , on few liters nasal cannula Head: Normocephalic, atraumatic, HEENT:[ Dry mucous membranes Neck is supple.] [No neck masses.] [No thyromegaly. ] [No JVD.] No icterus was appreciated. Chest: [Crackles at the bases bilaterally, no rhonchi, no wheezes.] Cardiac Exam: [Irregular irregular rhythm. Normal S1 and S2, no S3 gallop, 3/6 systolic murmur over the aortic area noted..] Abdomen: [Soft, nontender, no megaly, no rebound, no guarding, normal bowel sounds.] Extremities: [No clubbing, 1+ bipedal edema, no cyanosis.] Neurological Exam: Alert and oriented 3, no gross focal neurologic deficits. Psychiatric: Normal mood and affect, normal mental status examination. Musculoskeletal: No limitations in range of motion, no deformities, no tenderness. Skin: No rashes, no erythema, no cyanosis. - Labs CBC & Chem 7: 09/20/17 04:52 09/20/17 04:52 Labs: Abnormal Lab Results - Last 24 Hours (Table) 09/19/17 09/19/17 09/19/17 Range/Units 05:08 17:48 20:40 Hgb (11.4-16.0) gm/dL RDW (11.5-15.5) % Sodium (137-145) mmol/L Carbon Dioxide (22-30) mmol/L BUN (7-17) mg/dL Glucose (74-99) mg/dL POC Glucose (mg/dL) 123 H 179 H (75-99) mg/dL Hemoglobin A1c 6.5 H (4.0-6.0) % Calcium (8.4-10.2) mg/dL 09/20/17 09/20/17 09/20/17 Range/Units 04:52 04:52 05:52 Hgb 11.1 L (11.4-16.0) gm/dL RDW 15.8 H (11.5-15.5) % Sodium 136 L (137-145) mmol/L Carbon Dioxide 33 H (22-30) mmol/L BUN 22 H (7-17) mg/dL Glucose 51 L (74-99) mg/dL POC Glucose (mg/dL) 71 L (75-99) mg/dL Hemoglobin A1c (4.0-6.0) % Calcium 8.3 L (8.4-10.2) mg/dL 09/20/17 Range/Units 07:34 Hgb (11.4-16.0) gm/dL RDW (11.5-15.5) % Sodium (137-145) mmol/L Carbon Dioxide (22-30) mmol/L BUN (7-17) mg/dL Glucose (74-99) mg/dL POC Glucose (mg/dL) 107 H (75-99) mg/dL Hemoglobin A1c (4.0-6.0) % Calcium (8.4-10.2) mg/dL Microbiology - Last 24 Hours (Table) 09/18/17 19:30 Blood Culture - Preliminary Blood No Growth after 24 hours 09/19/17 01:15 Urine Culture - Preliminary Urine,Catheterized Assessment and Plan Assessment: Impression: 1 acute hypoxic respiratory failure secondary to possibly acute systolic congestive heart failure, although her pulmonary edema could be secondary to atrial fibrillation with RVR, and underlying valvular heart disease. Echocardiogram is pending for further clarification of her valvular heart disease and LV function. 2 multiple comorbidities including chronic atrial fibrillation, diabetes, history of deep vein thrombosis, hypertension, obstructive sleep apnea syndrome , valvular heart disease, previous deep vein thromboses and inferior vena cava filter placement. Recommendation: Continue diuretics, updrafts, empiric antibiotics, transfer patient out of the ICU to a monitored bed on selective, we'll continue to follow closely monitor electrolytes on a daily basis, monitor renal profile daily, continue GI and DVT prophylaxis. Time with Patient: Less than 30
[2017-09-20] MEDS: DILTIAZEM 125 MG in SODIUM CHLORIDE 0.9% 100 ML IV SCH ×2 (12:22→23:42)
--- NOTE | 2017-09-20 12:28 | ECHOF ---
Referral Reason:Cardiology workup, a-fib MEASUREMENTS -------- HEIGHT: 162.6 cm WEIGHT: 110.7 kg BP: 121/53 IVSd: 1.2 cm (0.6 - 1.1) LVIDd: 4.2 cm (3.9 - 5.3) LVPWd: 1.3 cm (0.6 - 1.1) IVSs: 1.9 cm LVIDs: 2.3 cm LVPWs: 1.6 cm LAESV Index (A-L): 65.99 ml/m Ao Diam: 2.9 cm (2.0 - 3.7) AV Cusp: 1.1 cm (1.5 - 2.6) LA Diam: 3.5 cm (2.7 - 3.8) AV maxP.73 mmHg AV meanP.54 mmHg RAP: 20.00 mmHg RVSP: 53.55 mmHg FINDINGS -------- Atrial fibrillation. This was a technically good study. The left ventricular size is normal. There is mild concentric left ventricular hypertrophy. Overa ll left ventricular systolic function is normal with, an EF between 55 - 60 %. The right ventricle is normal in size and function. LA is severely dilated >40 ml/m2 The right atrium is normal in size. Aortic valve is trileaflet and is severely thickened. There is moderate aortic stenosis present. Peak/mean gradient across the Aortic Valve is 35.73mmHg / 23.54mmHg. The mitral valve leaflets are moderately thickened. Moderate mitral annular calcification present. Moderate mitral regurgitation is present. Can not exclude Mitral Stenosis. Moderate tricuspid regurgitation present. There is moderate pulmonary hypertension. The right tremayne tricular systolic pressure, as measured by Doppler, is 53.55mmHg. Pulmonic valve appears structurally normal. The aortic root size is normal. The inferior vena cava is dilated with no significant inspiratory collapse which is consistent estima monisha right atrial pressure of >20 mmHg. The pericardium is normal. CONCLUSIONS -------- 1. Atrial fibrillation. 2. This was a technically good study. 3. The left ventricular size is normal. 4. There is mild concentric left ventricular hypertrophy. 5. Overall left ventricular systolic function is normal with, an EF between 55 - 60 %. 6. The right ventricle is normal in size and function. 7. LA is severely dilated >40 ml/m2 8. The right atrium is normal in size. 9. Aortic valve is trileaflet and is severely thickened. 10. Peak/mean gradient across the Aortic Valve is 35.73mmHg / 23.54mmHg. 11. The mitral valve leaflets are moderately thickened. 12. Moderate mitral annular calcification present. 13. Moderate mitral regurgitation is present. 14. Can not exclude Mitral Stenosis. 15. Moderate tricuspid regurgitation present. 16. There is moderate pulmonary hypertension. 17. The right ventricular systolic pressure, as measured by Doppler, is 53.55mmHg. 18. Pulmonic valve appears structurally normal. 19. The aortic root size is normal. 20. The inferior vena cava is dilated with no significant inspiratory collapse which is consistent es timated right atrial pressure of >20 mmHg. 21. The pericardium is normal. SAND FILLER: Nupur Payton RDCS
[2017-09-20] MEDS: MAGNESIUM OXIDE 400 MG TAB PO SCH (12:33)
[2017-09-20] MEDS: VIT A,C & E-LUTEIN-MINERALS 1 EACH TAB PO SCH (12:34)
[2017-09-20] MEDS: MULTIVITAMINS, THERA 1 EACH TAB PO SCH (12:35)
[2017-09-20] MEDS: CHOLECALCIFEROL 1,000 UNIT TAB PO SCH (12:35)
[2017-09-20 12:47] LABS: Glucose,Whole Blood 130 mg/dL (75-99)
[2017-09-20 17:07] LABS: Glucose,Whole Blood 93 mg/dL (75-99)
[2017-09-20] MEDS: WARFARIN 3 MG TAB PO SCH (17:16)
[2017-09-20] MEDS ORDERED: WARFARIN 1 MG TAB PO SCH (18:00)
--- NOTE | 2017-09-20 18:43 | PN ---
PROGRESS NOTE DATE OF SERVICE: 09/20/2017 This 82-year-old woman who was admitted with CHF acute exacerbation as well as acute hypoxic respiratory failure is being closely monitored at this time. The patient is also complaining of generalized weakness and tiredness. The patient is on Lasix at this time. Cardizem has been off. The atrial fibrillation rate has been controlled. Cardiology is following the patient closely. The patient is being closely monitored in ICU at this time. The most recent chest x-ray which is done today evaluated by may be personally showed CHF. PAST MEDICAL HISTORY: History of atrial ablation, CVI, CHF, diabetes, hypertension, DVT, history hypertension, history of sleep apnea. MEDICATIONS: Prior to admission include: 1. Vitamin A, C, E, zinc 1 p.o. daily. 2. Tylenol 325 mg q.4h p.r.n. 3. Magnesium chloride 64 mg p.o. daily. 4. Probiotic. 5. Iron 320 mg p.o. daily. 6. Prilosec 20 mg p.o. daily. 7. Multivitamins 1 p.o. daily. 8. Lantus 32 units subcu q.h.s. and 33 units subcu daily. 9. Cranberry 200 mg p.o. b.i.d. 10.Vitamin D3 2000 daily. 11.Warfarin 1 mg Saturday, Saturday, Saturday, and 6 mg p.o. daily. 12.Lopressor 50 mg p.o. b.i.d. 13.Diltiazem ER 180 mg p.o. daily. 14.Lipitor 20 mg p.o. daily. 15.Lasix 40 mg. 16.Ecotrin 81 mg. 17.Klor-Con 20 mg p.o. daily. 18.Lanoxin 125 mg p.o. daily. 19.Glucotrol 2.5 mg p.o. b.i.d. ALLERGIES: CODEINE. FAMILY HISTORY: No history of heart disease or strokes in the family. SOCIAL HISTORY: No history of smoking. No alcohol intake. REVIEW OF SYSTEMS: ENT: No diminished hearing or vision. CARDIOVASCULAR: As mentioned. RESPIRATORY: As mentioned earlier. GI: As mentioned. : No dysuria. NERVOUS SYSTEM: No numbness or weakness. PHYSICAL EXAM: Patient is alert, oriented x3. Pulse 97, blood pressure 120/66, respiration 30, temperature normal, pulse ox 94% on 6 L. HEENT: Conjunctivae normal. Oral mucosa moist. NECK: Jugular venous distention at root of neck. CARDIOVASCULAR: S1, S2 irregular. Ejection systolic murmur. RESPIRATORY: Breath sounds diminished at the bases. A few scattered rhonchi and crackles. ABDOMEN: Soft, obese, nontender. LEGS: Minimal bilateral edema. NERVOUS SYSTEM: Higher functions as mentioned. Moves all four limbs. No focal deficits. LYMPHATICS: No lymphadenopathy in the neck, axillae or groin. SKIN: No ulcer, rash or bleeding. LABS: WBC 8.8, hemoglobin 11.1, other labs are noted. ASSESSMENT: 1. Congestive heart failure acute exacerbation with acute on chronic diastolic dysfunction, ejection fraction 50-60%. 2. Moderate mitral regurgitation and tricuspid regurgitation. 3. Atrial fibrillation with fast ventricular rate. 4. Acute hypoxic respiratory failure secondary to congestive heart failure. 5. Diabetes mellitus type 2. 6. Elevated troponin type 2, non-ST elevation myocardial infarction secondary to demand ischemia. 7. Hypertension. 8. Valvular heart disease. 9. History of DVT. RECOMMENDATIONS AND DISCUSSION: This 82-year-old woman who presented with multiple complex medical issues, will monitor the patient closely. Continue the current medications and symptomatic treatment. Continue with diuretics. Monitor electrolytes closely. Continue the empiric antibiotics. Otherwise, closely follow with Pulmonary and Cardiology. Guarded prognosis further. See orders for details. Increase ambulation. Also recommend PT, OT evaluation. Discussed with the family at length. Consider possible ECF rehab if PT, OT recommended rehab on the basis of weakness or safety concerns. MMODL / IJN: [id number] /
[2017-09-20 21:02] LABS: Glucose,Whole Blood 167 mg/dL (75-99)
[2017-09-21] MEDS: ACETAMINOPHEN TAB 325 MG TAB PO PRN ×2 (03:58→23:44)
[2017-09-21 06:15] LABS: Basophils # (A) 0.1 k/uL (0-0.2); Basophils % (A) 1 %; CH 28.2; CHCM 31.1; Eosinophils # (A) 0.3 k/uL (0-0.7); Eosinophils % (A) 3 %; HCT 37.3 % (34.0-46.0); HGB 11.4 gm/dL (11.4-16.0); Hypochromasia Slight; Luc # (Auto) 0.14; Luc % (Auto) 2; Lymphocytes # (A) 1.8 k/uL (1.0-4.8); Lymphocytes % (A) 20 %; MCH 27.9 pg (25.0-35.0); MCHC 30.6 g/dL (31.0-37.0); MCV 91.1 fL (80.0-100.0); Mean Platelet Volume 7.7; Monocytes # (A) 0.7 k/uL (0-1.0); Monocytes % (A) 8 %; Neutrophils # (A) 5.8 k/uL (1.3-7.7); Neutrophils % (A) 66 %; RBC 4.09 m/uL (3.80-5.40); RDW 15.8 % (11.5-15.5); WBC 8.7 k/uL (3.8-10.6); WBC (Perox) 8.74
[2017-09-21 06:16] LABS: Glucose,Whole Blood 114 mg/dL (75-99)
[2017-09-21 06:27] LABS: Anion Gap 7 mmol/L; Blood Urea Nitrogen 17 mg/dL (7-17); Calcium 8.6 mg/dL (8.4-10.2); Carbon Dioxide 36 mmol/L (22-30); Chloride 96 mmol/L (98-107); Glucose 100 mg/dL (74-99); Non-African American GFR(MDRD) >60 (>60 ml/min/1.73 sqM); Phosphorus 4.6 mg/dL (2.5-4.5); Sodium 139 mmol/L (137-145)
[2017-09-21] MEDS: INSULIN ASPART 100 UNIT/ML 1 ML 10 ML VIAL SQ SCH ×4 (06:27→21:04)
[2017-09-21 06:30] LABS: INR 2.6 (<1.2); Prothrombin Time 24.6 sec (9.0-12.0)
[2017-09-21] MEDS: PANTOPRAZOLE 40 MG TABLET PO SCH ×2 (06:41→16:05)
[2017-09-21] MEDS: BUDESONIDE 0.5 MG/2 ML NEBU INHALATION SCH ×2 (07:40→19:52)
[2017-09-21] MEDS: PIPERACILLIN-TAZOBACTAM 3.375 GM in DEXTROSE/WATER 1 50ML.BAG IVPB SCH ×3 (08:08→23:32)
[2017-09-21] MEDS: FUROSEMIDE 10 MG/ML 4 ML VIAL IV SCH ×3 (08:08→23:32)
[2017-09-21] MEDS: INSULIN DETEMIR 100 UNIT/ML 10 ML VIAL SQ SCH ×2 (08:08→21:04)
[2017-09-21] MEDS: FERROUS SULFATE 325 MG TAB PO SCH ×2 (08:09→20:25)
[2017-09-21] MEDS: MAGNESIUM OXIDE 400 MG TAB PO SCH (08:09)
[2017-09-21] MEDS: MULTIVITAMINS, THERA 1 EACH TAB PO SCH (08:09)
[2017-09-21] MEDS: LACTOBACILLUS ACIDOPH & BULGAR 1 EACH PACKET PO SCH ×3 (08:09→20:28)
[2017-09-21] MEDS: ASPIRIN 81 MG PO SCH (08:09)
[2017-09-21] MEDS: VIT A,C & E-LUTEIN-MINERALS 1 EACH TAB PO SCH (08:09)
[2017-09-21] MEDS: CHOLECALCIFEROL 1,000 UNIT TAB PO SCH (08:10)
[2017-09-21] MEDS: ATORVASTATIN 20 MG TAB PO SCH (08:10)
[2017-09-21] MEDS: POTASSIUM CHLORIDE ER 20 MEQ TAB.ER PO SCH (08:10)
[2017-09-21] MEDS: DIGOXIN 125 MCG TAB PO SCH (08:10)
[2017-09-21] MEDS: DILTIAZEM 125 MG in SODIUM CHLORIDE 0.9% 100 ML IV SCH (08:11)
[2017-09-21] MEDS: METOPROLOL TARTRATE 50 MG TAB PO SCH ×3 (08:11→20:25)
[2017-09-21] MEDS: cefTRIAXone IN SWFI 1,000 MG/10 ML SYRINGE IVP SCH (09:13)
[2017-09-21 10:11] VITALS: RESP 18
--- NOTE | 2017-09-21 11:09 | P.PN ---
Subjective Progress Note Date: 09/21/17 Principal diagnosis: Acute systolic congestive heart failure This is an 82-year-old female with history of chronic atrial fibrillation, congestive heart failure, diabetes, deep vein thrombosis, hyperlipidemia, hypertension, obstructive sleep apnea syndrome, history of CVA/TIA, patient usually follows with a construction checker out of town. Patient was brought into the ER by family last night complaining of worsening shortness of breath. Patient was also complaining of cough, no fever, no chills, no hemoptysis, no chest pain , no nausea, no vomiting, no abdominal pain, no melena, no hematemesis. Patient also complained of some vague chest discomfort. Chest x-ray was clearly consistent with pulmonary edema, possibility of underlying pneumonia was not entirely ruled out, will attempt to be less likely. This is based on the fact that the patient improved significantly with diuresis overnight, and chest x-ray showed dramatic improvement but not complete clearance of her interstitial edema. Patient was seen by cardiology on consultation, she was kept on Cardizem at 10 mg per hour for her A. fib with RVR, and she was kept on metoprolol at 50 mg by mouth twice a day. Patient is already on anticoagulation in the form of Coumadin. Her EKG showed atrial fibrillation with RVR, her BNP was significantly elevated. And her cardiac enzymes were noted to be slightly abnormal with troponin of 0.06 on admission. The patient herself is a poor historian, however most of the history was obtained from daughter at bedside. Patient was reevaluated today on 09/20/2017, seems to be significantly improved. She is more alert oriented 3, she is denying any shortness of breath , continues to have significant urine output, she is at least negative by 2 L. Chest x-ray continues to show improvement but not completely resolved pulmonary edema noted. Possibility of underlying pneumonia is not entirely ruled out but felt to be much less likely. Reevaluated on 09/21/2017, continues to gradually improve, shortness of breath has significantly resolved. No cough no wheezing no shortness of breath no chest pain. Presently on 3 L nasal cannula. No chest x-ray was done today, but I plan to repeat chest x-ray in the next 24 hours. Labs including CBC and basic metabolic profile renal profile are normal. INR is therapeutic at 2.6 Objective - Vital Signs Vital signs: Vital Signs Temp 96.2 F L 09/21/17 08:00 Pulse 96 09/21/17 08:00 Resp 18 09/21/17 08:00 BP 113/56 09/21/17 08:00 Pulse Ox 93 L 09/21/17 08:00 Intake & Output 09/20/17 09/21/17 09/21/17 18:59 06:59 18:59 Intake Total 300 Output Total 2425 1900 Balance -2124 -1899 Weight 110.1 kg 106.5 kg Intake: Intake, IV Titration 300 Amount Magnesium Sulfate-D5w Pmx 200 1 gm In Dextrose/Water 1 100ml.bag @ 100 mls/hr IVPB Q1H [facility] Rx#: [id number] Piperacillin-Tazobactam 3 100 .375 gm In Dextrose/Water 1 50ml.bag @ 12.5 mls/hr IVPB Q8HR [facility] Rx#: [id number] Output: Urine 2425 1900 Other: Voiding Method Indwelling Catheter Indwelling Catheter Indwelling Catheter # Voids 0 # Bowel Movements 2 - Exam Physical Exam: Revealed an 82-year-old female in no form of respiratory distress , on few liters nasal cannula Head: Normocephalic, atraumatic, HEENT:[ Dry mucous membranes Neck is supple.] [No neck masses.] [No thyromegaly. ] [No JVD.] No icterus was appreciated. Chest: [Crackles at the bases bilaterally, no rhonchi, no wheezes.] Cardiac Exam: [Irregular irregular rhythm. Normal S1 and S2, no S3 gallop, 3/6 systolic murmur over the aortic area noted..] Abdomen: [Soft, nontender, no megaly, no rebound, no guarding, normal bowel sounds.] Extremities: [No clubbing, 1+ bipedal edema, no cyanosis.] Neurological Exam: Alert and oriented 3, no gross focal neurologic deficits. Psychiatric: Normal mood and affect, normal mental status examination. Musculoskeletal: No limitations in range of motion, no deformities, no tenderness. Skin: No rashes, no erythema, no cyanosis. - Labs CBC & Chem 7: 09/21/17 05:38 09/21/17 05:38 Labs: Abnormal Lab Results - Last 24 Hours (Table) 09/20/17 09/20/17 09/21/17 Range/Units 12:32 20:59 05:38 MCHC (31.0-37.0) g/dL RDW (11.5-15.5) % PT (9.0-12.0) sec INR (<1.2) Chloride 96 L (98-107) mmol/L Carbon Dioxide 36 H (22-30) mmol/L Glucose 100 H (74-99) mg/dL POC Glucose (mg/dL) 130 H 167 H (75-99) mg/dL Phosphorus 4.6 H (2.5-4.5) mg/dL 09/21/17 09/21/17 09/21/17 Range/Units 05:38 05:38 06:14 MCHC 30.6 L (31.0-37.0) g/dL RDW 15.8 H (11.5-15.5) % PT 24.6 H (9.0-12.0) sec INR 2.6 H (<1.2) Chloride (98-107) mmol/L Carbon Dioxide (22-30) mmol/L Glucose (74-99) mg/dL POC Glucose (mg/dL) 114 H (75-99) mg/dL Phosphorus (2.5-4.5) mg/dL Microbiology - Last 24 Hours (Table) 09/18/17 19:30 Blood Culture - Preliminary Blood No Growth after 48 hours 09/19/17 01:15 Urine Culture - Final Urine,Catheterized Assessment and Plan Assessment: Impression: 1 acute hypoxic respiratory failure secondary to diastolic congestive heart failure, and secondary to atrial fibrillation with RVR, and underlying valvular heart disease. And pulmonary hypertension which seems to be moderate in severity based on the echocardiogram. There is also moderate mitral regurgitation Echocardiogram report was noted. 2 multiple comorbidities including chronic atrial fibrillation, diabetes, history of deep vein thrombosis, hypertension, obstructive sleep apnea syndrome , valvular heart disease, previous deep vein thromboses and inferior vena cava filter placement. Recommendation: Continue diuretics, updrafts, empiric antibiotics, consider discharge planning in the next 48 hours. Patient will follow-up with her primary care physician and construction checker in [place] post discharge. Time with Patient: Less than 30
[2017-09-21] MEDS: DILTIAZEM CD 120 MG CAP.ER.24H PO SCH (12:14)
[2017-09-21 12:25] LABS: Glucose,Whole Blood 199 mg/dL (75-99)
--- NOTE | 2017-09-21 12:44 | P.PN ---
Subjective Progress Note Date: 09/21/17 Principal diagnosis: Acute sepsis secondary to UTI This is a pleasant 84-year-old female with medical history significant for paroxysmal atrial fibrillation along with prior congestive heart failure, valvular heart disease, diabetes, hypertension, hyperlipidemia, who was initially brought to the hospital with symptoms generally not feeling well. She also had positive sputum production with associated fever and atypical chest discomfort. On presentation she was found to be in A. fib with RVR, continues to be in A. fib, today her heart rate in the 80s. Her metoprolol tartrate was increased to 50 mg by mouth 3 times a day and she is on Coumadin for anticoagulation. She was also on oral Cardizem. She was sitting up at that site today, had just been up with physical therapy at the time of our examination. Objective - Vital Signs Vital signs: Vital Signs Temp 96.2 F L 09/21/17 08:00 Pulse 96 09/21/17 08:00 Resp 18 09/21/17 08:00 BP 113/56 09/21/17 08:00 Pulse Ox 93 L 09/21/17 08:00 Intake & Output 09/20/17 09/21/17 09/21/17 18:59 06:59 18:59 Intake Total 300 Output Total 2425 1900 Balance -2124 -1899 Weight 110.1 kg 106.5 kg Intake: Intake, IV Titration 300 Amount Magnesium Sulfate-D5w Pmx 200 1 gm In Dextrose/Water 1 100ml.bag @ 100 mls/hr IVPB Q1H [facility] Rx#: [id number] Piperacillin-Tazobactam 3 100 .375 gm In Dextrose/Water 1 50ml.bag @ 12.5 mls/hr IVPB Q8HR [facility] Rx#: [id number] Output: Urine 2425 1900 Other: Voiding Method Indwelling Catheter Indwelling Catheter Indwelling Catheter # Voids 0 # Bowel Movements 2 - Exam PHYSICAL EXAMINATION: HEENT: Head is atraumatic, normocephalic. Pupils equal, round. Neck is supple. There is no elevated jugular venous pressure. HEART EXAMINATION: S1 and S2 irregularly irregular a systolic murmur is heard. CHEST EXAMINATION: His reveal rales bilaterally. ABDOMEN: Soft, nontender. Bowel sounds are heard. No organomegaly noted. EXTREMITIES: 2+ peripheral pulses with no evidence of peripheral edema and no calf tenderness noted. NEUROLOGIC patient is awake, alert and oriented -3. . - Labs CBC & Chem 7: 09/21/17 05:38 09/21/17 05:38 Labs: Abnormal Lab Results - Last 24 Hours (Table) 09/20/17 09/20/17 09/21/17 Range/Units 12:32 20:59 05:38 MCHC (31.0-37.0) g/dL RDW (11.5-15.5) % PT (9.0-12.0) sec INR (<1.2) Chloride 96 L (98-107) mmol/L Carbon Dioxide 36 H (22-30) mmol/L Glucose 100 H (74-99) mg/dL POC Glucose (mg/dL) 130 H 167 H (75-99) mg/dL Phosphorus 4.6 H (2.5-4.5) mg/dL 09/21/17 09/21/17 09/21/17 Range/Units 05:38 05:38 06:14 MCHC 30.6 L (31.0-37.0) g/dL RDW 15.8 H (11.5-15.5) % PT 24.6 H (9.0-12.0) sec INR 2.6 H (<1.2) Chloride (98-107) mmol/L Carbon Dioxide (22-30) mmol/L Glucose (74-99) mg/dL POC Glucose (mg/dL) 114 H (75-99) mg/dL Phosphorus (2.5-4.5) mg/dL 09/21/17 Range/Units 11:46 MCHC (31.0-37.0) g/dL RDW (11.5-15.5) % PT (9.0-12.0) sec INR (<1.2) Chloride (98-107) mmol/L Carbon Dioxide (22-30) mmol/L Glucose (74-99) mg/dL POC Glucose (mg/dL) 199 H (75-99) mg/dL Phosphorus (2.5-4.5) mg/dL Microbiology - Last 24 Hours (Table) 09/18/17 19:30 Blood Culture - Preliminary Blood No Growth after 48 hours 09/19/17 01:15 Urine Culture - Final Urine,Catheterized Assessment and Plan Plan: Assessment and plan #1 acute respiratory failure secondary to diastolic congestive heart failure. #2 paroxsysmal atrial fibrillation #3 pulmonary hypertension #4 obstructive sleep apnea Number 5 diabetes #6 history of DVT and PE #Hypertension #8 history of [place] filter placement Plan From cardiology's perspective, we'll continue patient on baby aspirin, IV Lasix , beta regis dose was increased, we will continue that current dose along with by mouth Cardizem and Lanoxin. Check lytes BUN and creatinine. DNP note has been reviewed, I agree with a documented findings and plan of care. Patient was seen and examined.
[2017-09-21 13:00] VITALS: BMI 40.3
[2017-09-21] MEDS: IPRATROPIUM-ALBUTEROL 3 ML NEB INHALATION PRN ×2 (15:05→19:52)
[2017-09-21] MEDS: WARFARIN 3 MG TAB PO SCH (16:05)
[2017-09-21 17:38] LABS: Glucose,Whole Blood 93 mg/dL (75-99)
[2017-09-21 20:42] LABS: Glucose,Whole Blood 240 mg/dL (75-99)
--- NOTE | 2017-09-21 21:17 | PN ---
PROGRESS NOTE DATE OF SERVICE: 09/21/2017 INTERVAL HISTORY: This 82-year-old woman who was admitted with CHF acute exacerbation also had moderate mitral regurgitation. The patient is feeling slightly better. Patient is complaining of generalized tiredness and weakness. PAST MEDICAL HISTORY: Reviewed. REVIEW OF SYSTEMS: Cardiovascular: No angina. RESPIRATIONS: As mentioned earlier. GI: As mentioned earlier. : No dysuria. NERVOUS: No numbness, weakness. CURRENT MEDICATIONS: Reviewed and include: 1. Tylenol 650 q.4h p.r.n. 2. DuoNeb q.i.d. and p.r.n. 3. Aspirin 81 mg. 4. Lipitor 20 mg. 5. Pulmicort 0.5 b.i.d. 6. Rocephin. 7. Vitamin D3 2000 units. 8. Lanoxin 125 mcg. 9. Cardizem CD 120 mg p.o. daily. 10.Iron sulfate 325 mg b.i.d. 11.Lasix 40 mg IV q.8h. 12.Glucotrol. 13.Levemir. 14.Lactinex. 15.Lopressor. 16.Narcan. 17.Protonix. 18.Zosyn. 19.Coumadin. PHYSICAL EXAM: Patient is alert and oriented x3. Pulse 100, blood pressure 112/55, respirations 18, temp 97.6, pulse ox 94% on 3L. HEENT: Conjunctivae normal. NECK: No jugular venous distention. CARDIOVASCULAR: S1, S2 muffled. RESPIRATORY: Breath sounds diminished in the bases. Bilateral scattered rhonchi and crackles. ABDOMEN: Soft, nontender. No mass palpable. LEGS: No edema. NERVOUS SYSTEM: Diffusely weak. LAB STUDIES: INR 2.6. Other labs are noted. ASSESSMENT: 1. Congestive heart failure acute exacerbation with acute on chronic diastolic dysfunction, ejection fraction 50% to 60%. 2. Moderate mitral regurgitation with tricuspid regurgitation. 3. Atrial fibrillation with fast ventricular rate. 4. Acute hypoxic respiratory failure secondary to congestive heart failure. 5. Diabetes mellitus type 2. 6. Elevated troponin, possibly type [address]-segment elevation myocardial infarction secondary to demand ischemia. 7. Hypertension. 8. Valvular heart disease. 9. History of deep vein thrombosis. 10.FULL CODE. 11.Gaitdysfunction. RECOMMENDATIONS AND DISCUSSION: In this 82-year-old woman who presented with multiple complex medical issues, will monitor the patient closely. Continue the current medical management and symptomatic treatment. Monitor fluid-electrolyte balance closely. Otherwise, repeat labs are ordered. PT/OT evaluation, possible ECF rehab. Guarded prognosis because of multiple complex medical issues. Further recommendations to follow. MMSARAHL / ENMAN: [id number] /
[2017-09-22 06:11] LABS: Basophils # (A) 0.1 k/uL (0-0.2); Basophils % (A) 1 %; CH 27.7; Eosinophils # (A) 0.3 k/uL (0-0.7); Eosinophils % (A) 4 %; HCT 38.6 % (34.0-46.0); HDW 2.33; HGB 11.9 gm/dL (11.4-16.0); Hypochromasia Slight; Luc # (Auto) 0.16; Luc % (Auto) 2; Lymphocytes # (A) 2.2 k/uL (1.0-4.8); Lymphocytes % (A) 31 %; MCH 27.7 pg (25.0-35.0); MCHC 30.9 g/dL (31.0-37.0); MCV 89.8 fL (80.0-100.0); Mean Platelet Volume 7.8; Monocytes # (A) 0.6 k/uL (0-1.0); Monocytes % (A) 8 %; Neutrophils % (A) 55 %; RDW 15.8 % (11.5-15.5); WBC 7.2 k/uL (3.8-10.6); WBC (Perox) 7.47
[2017-09-22 06:11] LABS: Glucose,Whole Blood 110 mg/dL (75-99)
[2017-09-22] MEDS: INSULIN ASPART 100 UNIT/ML 1 ML 10 ML VIAL SQ SCH ×4 (06:16→21:35)
[2017-09-22 06:24] LABS: Anion Gap 8 mmol/L; Blood Urea Nitrogen 18 mg/dL (7-17); Calcium 8.9 mg/dL (8.4-10.2); Carbon Dioxide 35 mmol/L (22-30); Chloride 97 mmol/L (98-107); Glucose 105 mg/dL (74-99); Magnesium 1.9 mg/dL (1.6-2.3); Non-African American GFR(MDRD) >60 (>60 ml/min/1.73 sqM); Phosphorus 4.6 mg/dL (2.5-4.5); Potassium 3.9 mmol/L (3.5-5.1); Sodium 140 mmol/L (137-145)
[2017-09-22] MEDS: PANTOPRAZOLE 40 MG TABLET PO SCH ×2 (06:46→17:02)
--- NOTE | 2017-09-22 06:59 | XR ---
EXAMINATION TYPE: XR chest 1V portable DATE OF EXAM: 09/22/2017 HISTORY: chf. REFERENCE: Previous study dated 09/20/2017. FINDINGS: The heart is mildly enlarged. Vascular congestion is improved. Interstitial changes have im proved. Pleural spaces are clear. IMPRESSION: RESOLVING CHANGES OF PULMONARY EDEMA.
[2017-09-22] MEDS: IPRATROPIUM-ALBUTEROL 3 ML NEB INHALATION PRN ×3 (08:27→20:52)
[2017-09-22] MEDS: BUDESONIDE 0.5 MG/2 ML NEBU INHALATION SCH ×2 (08:27→20:52)
[2017-09-22] MEDS: FUROSEMIDE 10 MG/ML 4 ML VIAL IV SCH (09:24)
[2017-09-22] MEDS: INSULIN DETEMIR 100 UNIT/ML 10 ML VIAL SQ SCH ×2 (09:24→21:35)
[2017-09-22] MEDS: PIPERACILLIN-TAZOBACTAM 3.375 GM in DEXTROSE/WATER 1 50ML.BAG IVPB SCH (09:25)
[2017-09-22] MEDS: POTASSIUM CHLORIDE ER 20 MEQ TAB.ER PO SCH (09:25)
[2017-09-22] MEDS: ASPIRIN 81 MG PO SCH (09:25)
[2017-09-22] MEDS: METOPROLOL TARTRATE 50 MG TAB PO SCH (09:25)
[2017-09-22] MEDS: DILTIAZEM CD 120 MG CAP.ER.24H PO SCH (09:25)
[2017-09-22] MEDS: VIT A,C & E-LUTEIN-MINERALS 1 EACH TAB PO SCH (09:25)
[2017-09-22] MEDS: MULTIVITAMINS, THERA 1 EACH TAB PO SCH (09:25)
[2017-09-22] MEDS: FERROUS SULFATE 325 MG TAB PO SCH ×2 (09:26→21:24)
[2017-09-22] MEDS: LACTOBACILLUS ACIDOPH & BULGAR 1 EACH PACKET PO SCH ×2 (09:26→21:04)
[2017-09-22] MEDS: CHOLECALCIFEROL 1,000 UNIT TAB PO SCH (09:27)
[2017-09-22] MEDS: ATORVASTATIN 20 MG TAB PO SCH (09:27)
[2017-09-22] MEDS: MAGNESIUM OXIDE 400 MG TAB PO SCH (09:28)
[2017-09-22] MEDS: DIGOXIN 125 MCG TAB PO SCH (09:28)
[2017-09-22] MEDS ORDERED: METOPROLOL TARTRATE 25 MG TAB PO ONE (10:15)
[2017-09-22 10:27] LABS: INR 2.8 (<1.2); Prothrombin Time 27.4 sec (9.0-12.0)
[2017-09-22] MEDS: FUROSEMIDE 20 MG TAB PO SCH ×2 (10:39→15:54)
--- NOTE | 2017-09-22 10:45 | P.PN ---
Subjective Progress Note Date: 09/22/17 Principal diagnosis: Acute diastolic congestive heart failure This is an 82-year-old female with history of chronic atrial fibrillation, congestive heart failure, diabetes, deep vein thrombosis, hyperlipidemia, hypertension, obstructive sleep apnea syndrome, history of CVA/TIA, patient usually follows with a cd reactor operator head out of town. Patient was brought into the ER by family last night complaining of worsening shortness of breath. Patient was also complaining of cough, no fever, no chills, no hemoptysis, no chest pain , no nausea, no vomiting, no abdominal pain, no melena, no hematemesis. Patient also complained of some vague chest discomfort. Chest x-ray was clearly consistent with pulmonary edema, possibility of underlying pneumonia was not entirely ruled out, will attempt to be less likely. This is based on the fact that the patient improved significantly with diuresis overnight, and chest x-ray showed dramatic improvement but not complete clearance of her interstitial edema. Patient was seen by cardiology on consultation, she was kept on Cardizem at 10 mg per hour for her A. fib with RVR, and she was kept on metoprolol at 50 mg by mouth twice a day. Patient is already on anticoagulation in the form of Coumadin. Her EKG showed atrial fibrillation with RVR, her BNP was significantly elevated. And her cardiac enzymes were noted to be slightly abnormal with troponin of 0.06 on admission. The patient herself is a poor historian, however most of the history was obtained from daughter at bedside. Patient was reevaluated today on 09/20/2017, seems to be significantly improved. She is more alert oriented 3, she is denying any shortness of breath , continues to have significant urine output, she is at least negative by 2 L. Chest x-ray continues to show improvement but not completely resolved pulmonary edema noted. Possibility of underlying pneumonia is not entirely ruled out but felt to be much less likely. Reevaluated on 09/21/2017, continues to gradually improve, shortness of breath has significantly resolved. No cough no wheezing no shortness of breath no chest pain. Presently on 3 L nasal cannula. No chest x-ray was done today, but I plan to repeat chest x-ray in the next 24 hours. Labs including CBC and basic metabolic profile renal profile are normal. INR is therapeutic at 2.6 On 09/2017, patient is much better, breathing a lot easier, no cough no wheezing no shortness of breath, chest x-ray showed almost complete clearing of her interstitial edema. Clearly this is not a presentation of pneumonia and it was a clear-cut presentation of pulmonary edema and congestive heart failure. Hence I will discontinue antibiotics, switched the patient to oral diuretics, she'll be placed on 60 mg of Lasix twice a day, repeat labs in a.m., consider discharge planning in the next 24 hours, patient could have follow-up with her primary care physician in [place] as well as her cd reactor operator head out of town. Objective - Vital Signs Vital signs: Vital Signs Temp 97.1 F L 09/22/17 04:00 Pulse 91 09/22/17 08:40 Resp 18 09/22/17 04:00 BP 115/57 09/22/17 04:00 Pulse Ox 91 L 09/22/17 08:27 Intake & Output 09/21/17 09/22/17 09/22/17 18:59 06:59 18:59 Intake Total 410 180 Output Total 1100 1500 Balance -690 -1320 Weight 106.5 kg 100.5 kg Intake: Oral 410 180 Output: Urine 1100 1500 Uretheral (Barger) 1100 Other: Voiding Method Indwelling Catheter Indwelling Catheter - Exam Physical Exam: Revealed an 82-year-old female in no form of respiratory distress , on few liters nasal cannula Head: Normocephalic, atraumatic, HEENT:[ Dry mucous membranes Neck is supple.] [No neck masses.] [No thyromegaly. ] [No JVD.] No icterus was appreciated. Chest: [Clear bilaterally no crackles or rhonchi or wheezes..] Cardiac Exam: [Irregular irregular rhythm. Normal S1 and S2, no S3 gallop, 3/6 systolic murmur over the aortic area noted..] Abdomen: [Soft, nontender, no megaly, no rebound, no guarding, normal bowel sounds.] Extremities: [No clubbing, 1+ bipedal edema, no cyanosis.] Neurological Exam: Alert and oriented 3, no gross focal neurologic deficits. Psychiatric: Normal mood and affect, normal mental status examination. Musculoskeletal: No limitations in range of motion, no deformities, no tenderness. Skin: No rashes, no erythema, no cyanosis. - Labs CBC & Chem 7: 09/22/17 05:52 09/22/17 05:52 Labs: Abnormal Lab Results - Last 24 Hours (Table) 09/21/17 09/21/17 09/22/17 Range/Units 11:46 20:40 05:38 MCHC (31.0-37.0) g/dL RDW (11.5-15.5) % PT 27.4 H (9.0-12.0) sec INR 2.8 H (<1.2) Chloride (98-107) mmol/L Carbon Dioxide (22-30) mmol/L BUN (7-17) mg/dL Glucose (74-99) mg/dL POC Glucose (mg/dL) 199 H 240 H (75-99) mg/dL Phosphorus (2.5-4.5) mg/dL 09/22/17 09/22/17 09/22/17 Range/Units 05:52 05:52 06:10 MCHC 30.9 L (31.0-37.0) g/dL RDW 15.8 H (11.5-15.5) % PT (9.0-12.0) sec INR (<1.2) Chloride 97 L (98-107) mmol/L Carbon Dioxide 35 H (22-30) mmol/L BUN 18 H (7-17) mg/dL Glucose 105 H (74-99) mg/dL POC Glucose (mg/dL) 110 H (75-99) mg/dL Phosphorus 4.6 H (2.5-4.5) mg/dL Microbiology - Last 24 Hours (Table) 09/18/17 19:30 Blood Culture - Preliminary Blood No Growth after 72 hours Assessment and Plan Assessment: Impression: 1 acute hypoxic respiratory failure secondary to diastolic congestive heart failure, and secondary to atrial fibrillation with RVR, and underlying valvular heart disease. And pulmonary hypertension which seems to be moderate in severity based on the echocardiogram. There is also moderate mitral regurgitation Echocardiogram report was noted. 2 multiple comorbidities including chronic atrial fibrillation, diabetes, history of deep vein thrombosis, hypertension, obstructive sleep apnea syndrome , valvular heart disease, previous deep vein thromboses and inferior vena cava filter placement. Recommendation: Switch patient to oral diuretics Lasix 60 mg by mouth twice a day, discontinue antibiotics altogether, check labs in a.m., consider discharge planning in the next 24 hours. Patient should have follow-up with her cd reactor operator head and primary care physician post discharge. Time with Patient: Less than 30
[2017-09-22 12:01] LABS: Glucose,Whole Blood 246 mg/dL (75-99)
--- NOTE | 2017-09-22 12:53 | PN ---
PROGRESS NOTE Mrs. Lalitha Baker is in atrial fib. Rate control is better. Heart rate is in the 90s. Her breathing is easier. She has been switched from IV to oral Lasix today. She is actually feeling better. Denies chest pain. Her antibiotics have been stopped by Dr. Gaviria who did not feel that she has any active ongoing infection at this time. The combination of digoxin, beta regis, and diltiazem seems to be helping her heart rate control. We will increase the metoprolol to 75 mg t.i.d. and see how she does. Her Lasix has also been switched to oral 60 mg b.i.d. She has mostly diastolic heart failure. Moderate to severe aortic stenosis and chronic atrial fibrillation with increased rate that seems to have precipitated most of her symptoms. VITAL SIGNS: Stable with a heart rate in the 90s. JVD is 1 cm. No carotid bruit. S1- S2 heard normally. Ejection systolic murmur is audible. Second heart sound is not very well heard. Her lungs reveal improved air entry. Abdomen and lower exam otherwise is unchanged. MMODL / IJN: [id number] /
[2017-09-22] MEDS: METOPROLOL TARTRATE 25 MG TAB PO SCH ×2 (15:54→21:24)
[2017-09-22] MEDS: WARFARIN 3 MG TAB PO SCH (17:02)
[2017-09-22 17:03] LABS: Glucose,Whole Blood 117 mg/dL (75-99)
--- NOTE | 2017-09-22 17:08 | PN ---
PROGRESS NOTE DATE OF SERVICE: 09/22/2017 INTERVAL HISTORY: This 82-year-old woman who was admitted with CHF acute exacerbation also had moderate mitral and tricuspid regurgitation also. The patient also had acute hypoxic respiratory failure. Patient also has significant weakness of the left side. The patient is improving significantly. The most recent chest x-ray which was done today showed changes, pulmonary edema. PT, OT are evaluating the patient. PAST MEDICAL HISTORY: Reviewed. MEDICATIONS: The patient is still on p.o. Lasix at this time. PHYSICAL EXAM: Patient is alert, oriented x3. Pulse is 82, blood pressure 119/50, respiration 18, temperature 97.4, pulse ox 94% on 2 L. HEENT: Conjunctivae normal. Oral mucosa moist. Neck is no jugular venous distention. No lymph node enlargement. CARDIOVASCULAR: S1, S2 muffled. Ejection systolic murmur present on exam. RESPIRATORY: Breath sounds diminished in the bases. A few scattered rhonchi and crackles. ABDOMEN: Soft, nontender. No mass palpable. LEGS: No edema. NERVOUS SYSTEM: No focal deficits. LABS: CBC within normal limits. Glucose 110. ASSESSMENT: 1. Congestive heart failure acute exacerbation with acute on chronic diastolic dysfunction ejection fraction 50% to 60%. 2. Moderate mitral regurgitation and tricuspid regurgitation. 3. Atrial fibrillation with fast ventricular rate. 4. Acute hypoxic respiratory failure secondary to congestive heart failure. 5. Diabetes type 2. 6. Elevated troponin, possibly type [address]-segment elevation myocardial infarction secondary to demand ischemia. 7. Hypertension. 8. Valvular heart disease. 9. History of deep vein thrombosis. 10.Gait dysfunction. 11.FULL CODE. RECOMMENDATIONS AND DISCUSSION: I recommend to continue current medications, symptomatic treatment. Otherwise, Social Work and Import Export Coordinator to evaluate the patient. PT, OT are evaluating the patient for possible ECF rehab. Continue the rest of medications p.o. diuretics. Monitor fluid and electrolyte balance closely. Prognosis guarded, which I discussed at length with the family who understands. Further recommendations to follow. MMODL / IJN: [id number] / MTDD
[2017-09-22 21:31] LABS: Glucose,Whole Blood 259 mg/dL (75-99)
[2017-09-23 06:04] LABS: Glucose,Whole Blood 141 mg/dL (75-99)
[2017-09-23] MEDS: INSULIN ASPART 100 UNIT/ML 1 ML 10 ML VIAL SQ SCH ×2 (06:42→12:21)
[2017-09-23] MEDS: PANTOPRAZOLE 40 MG TABLET PO SCH (06:42)
[2017-09-23 06:48] LABS: Basophils # (A) 0.1 k/uL (0-0.2); Basophils % (A) 1 %; CH 27.9; CHCM 30.6; Eosinophils # (A) 0.2 k/uL (0-0.7); Eosinophils % (A) 3 %; HCT 40.7 % (34.0-46.0); HDW 2.32; HGB 12.6 gm/dL (11.4-16.0); Hypochromasia Slight; Luc # (Auto) 0.09; Luc % (Auto) 1; Lymphocytes # (A) 1.7 k/uL (1.0-4.8); Lymphocytes % (A) 24 %; MCH 28.4 pg (25.0-35.0); MCV 91.5 fL (80.0-100.0); Mean Platelet Volume 7.6; Monocytes # (A) 0.6 k/uL (0-1.0); Monocytes % (A) 8 %; Neutrophils # (A) 4.6 k/uL (1.3-7.7); Neutrophils % (A) 63 %; RBC 4.45 m/uL (3.80-5.40); RDW 15.5 % (11.5-15.5); WBC 7.4 k/uL (3.8-10.6); WBC (Perox) 7.85
[2017-09-23 07:00] LABS: Anion Gap 8 mmol/L; Blood Urea Nitrogen 16 mg/dL (7-17); Calcium 9.3 mg/dL (8.4-10.2); Carbon Dioxide 33 mmol/L (22-30); Chloride 96 mmol/L (98-107); Glucose 132 mg/dL (74-99); Magnesium 1.9 mg/dL (1.6-2.3); Non-African American GFR(MDRD) >60 (>60 ml/min/1.73 sqM); Potassium 4.1 mmol/L (3.5-5.1); Sodium 137 mmol/L (137-145)
[2017-09-23 07:02] LABS: INR 3.4 (<1.2); Prothrombin Time 32.9 sec (9.0-12.0)
[2017-09-23] MEDS: BUDESONIDE 0.5 MG/2 ML NEBU INHALATION SCH (08:42)
[2017-09-23] MEDS: CHOLECALCIFEROL 1,000 UNIT TAB PO SCH (08:51)
[2017-09-23] MEDS: LACTOBACILLUS ACIDOPH & BULGAR 1 EACH PACKET PO SCH (08:51)
[2017-09-23] MEDS: POTASSIUM CHLORIDE ER 20 MEQ TAB.ER PO SCH (08:52)
[2017-09-23] MEDS: VIT A,C & E-LUTEIN-MINERALS 1 EACH TAB PO SCH (08:53)
[2017-09-23] MEDS: MULTIVITAMINS, THERA 1 EACH TAB PO SCH (08:53)
[2017-09-23] MEDS: ASPIRIN 81 MG PO SCH (08:54)
[2017-09-23] MEDS: DILTIAZEM CD 120 MG CAP.ER.24H PO SCH (08:54)
[2017-09-23] MEDS: FERROUS SULFATE 325 MG TAB PO SCH (08:54)
[2017-09-23] MEDS: METOPROLOL TARTRATE 25 MG TAB PO SCH (08:54)
[2017-09-23] MEDS: FUROSEMIDE 20 MG TAB PO SCH (08:55)
[2017-09-23] MEDS: DIGOXIN 125 MCG TAB PO SCH (08:55)
[2017-09-23] MEDS: ATORVASTATIN 20 MG TAB PO SCH (08:55)
[2017-09-23] MEDS: MAGNESIUM OXIDE 400 MG TAB PO SCH (08:56)
[2017-09-23] MEDS: INSULIN DETEMIR 100 UNIT/ML 10 ML VIAL SQ SCH (08:59)
[2017-09-23 12:03] LABS: Glucose,Whole Blood 193 mg/dL (75-99)
--- NOTE | 2017-09-23 12:42 | PN ---
PROGRESS NOTE This lady came into the hospital with what seemed to be a question of some pneumonia and infection. She had atrial fib, which she is known to have, but the rate was quite fast. She also has underlying aortic stenosis and some diastolic dysfunction in the setting of atrial fibrillation and aortic valve disease. Clinically, I believe she had diastolic heart failure with good systolic function on echocardiogram. She has been diuresed and she responded very well. Her rate control has been achieved. She did not have any significant troponin elevation to suggest myocardial injury. She is resting comfortably without symptoms. Heart rate is in the 80s. I am recommending that we can since discharge her today on the current medical regimen and the Lasix will be increased to 40 mg b.i.d. from 40 mg daily that she was taking at home. Vital signs are stable. Heart rate is in the 80s. S1-S2 heard normally. Ejection systolic murmur at the base is audible. Second heart sound is less obvious. Patient has moderate aortic stenosis. Lungs are clear. Abdomen is soft, nontender. Lower extremities reveal diminished but palpable pulses. No edema. Central nervous system is normal. IMPRESSION: 1. Exacerbation of diastolic heart failure, which has resolved. 2. Moderate aortic stenosis. 3. Known atrial fibrillation, chronic, but with a paroxysm of increased rate precipitating heart failure. 4. Probable pneumonia. RECOMMENDATIONS: I am recommending that she can be discharged on current medications and follow up with her child and adolescent therapist in the [place] area. MMSARAHL / ENMAN: [id number] /
[2017-09-23 14:11] VITALS: BP 133/65; PULSE 73; TEMP 97.6
--- NOTE | 2017-09-23 14:58 | P.PN ---
Subjective Progress Note Date: 09/23/17 Principal diagnosis: Acute diastolic congestive heart failure This is an 82-year-old female with history of chronic atrial fibrillation, congestive heart failure, diabetes, deep vein thrombosis, hyperlipidemia, hypertension, obstructive sleep apnea syndrome, history of CVA/TIA, patient usually follows with a chief analytics officer out of town. Patient was brought into the ER by family last night complaining of worsening shortness of breath. Patient was also complaining of cough, no fever, no chills, no hemoptysis, no chest pain , no nausea, no vomiting, no abdominal pain, no melena, no hematemesis. Patient also complained of some vague chest discomfort. Chest x-ray was clearly consistent with pulmonary edema, possibility of underlying pneumonia was not entirely ruled out, will attempt to be less likely. This is based on the fact that the patient improved significantly with diuresis overnight, and chest x-ray showed dramatic improvement but not complete clearance of her interstitial edema. Patient was seen by cardiology on consultation, she was kept on Cardizem at 10 mg per hour for her A. fib with RVR, and she was kept on metoprolol at 50 mg by mouth twice a day. Patient is already on anticoagulation in the form of Coumadin. Her EKG showed atrial fibrillation with RVR, her BNP was significantly elevated. And her cardiac enzymes were noted to be slightly abnormal with troponin of 0.06 on admission. The patient herself is a poor historian, however most of the history was obtained from daughter at bedside. Patient was reevaluated today on 09/20/2017, seems to be significantly improved. She is more alert oriented 3, she is denying any shortness of breath , continues to have significant urine output, she is at least negative by 2 L. Chest x-ray continues to show improvement but not completely resolved pulmonary edema noted. Possibility of underlying pneumonia is not entirely ruled out but felt to be much less likely. Reevaluated on 09/21/2017, continues to gradually improve, shortness of breath has significantly resolved. No cough no wheezing no shortness of breath no chest pain. Presently on 3 L nasal cannula. No chest x-ray was done today, but I plan to repeat chest x-ray in the next 24 hours. Labs including CBC and basic metabolic profile renal profile are normal. INR is therapeutic at 2.6 On 09/2017, patient is much better, breathing a lot easier, no cough no wheezing no shortness of breath, chest x-ray showed almost complete clearing of her interstitial edema. Clearly this is not a presentation of pneumonia and it was a clear-cut presentation of pulmonary edema and congestive heart failure. Hence I will discontinue antibiotics, switched the patient to oral diuretics, she'll be placed on 60 mg of Lasix twice a day, repeat labs in a.m., consider discharge planning in the next 24 hours, patient could have follow-up with her primary care physician in [place] as well as her chief analytics officer out of town. On 09/23/2017 patient remained stable from pulmonary standpoint. Her lung sounds are clear to auscultation, no rhonchi, no rales. She denies any cough, wheezing, or shortness of breath. Chest x-ray was done on 09/22/2017 and showed resolving changes of pulmonary edema. She continues on 2 L per nasal cannula with O2 sat at 95%. He has been afebrile, no significant sputum production. Urine and blood cultures have showed no growth since admission. She continues on oral Lasix 40 mg by mouth twice a day. She is stable for discharge home on pulmonary standpoint. Objective - Vital Signs Vital signs: Vital Signs Temp 97.6 F 09/23/17 12:00 Pulse 73 09/23/17 12:00 Resp 18 09/23/17 12:00 BP 133/65 09/23/17 12:00 Pulse Ox 95 09/23/17 12:00 Intake & Output 09/22/17 09/23/17 09/23/17 18:59 06:59 18:59 Intake Total 300 400 Output Total 1 2 Balance 299 398 Weight 101 kg Intake: Oral 300 400 Output: Stool 1 2 Other: Voiding Method Indwelling Catheter Bedpan Bedpan # Voids 1 # Bowel Movements 1 - Exam Physical Exam: Revealed an 82-year-old female in no form of respiratory distress , on few liters nasal cannula Head: Normocephalic, atraumatic, HEENT:[ Dry mucous membranes Neck is supple.] [No neck masses.] [No thyromegaly. ] [No JVD.] No icterus was appreciated. Chest: [Clear bilaterally no crackles or rhonchi or wheezes..] Cardiac Exam: [Irregular irregular rhythm. Normal S1 and S2, no S3 gallop, 3/6 systolic murmur over the aortic area noted..] Abdomen: [Soft, nontender, no megaly, no rebound, no guarding, normal bowel sounds.] Extremities: [No clubbing, 1+ bipedal edema, no cyanosis.] Neurological Exam: Alert and oriented 3, no gross focal neurologic deficits. Psychiatric: Normal mood and affect, normal mental status examination. Musculoskeletal: No limitations in range of motion, no deformities, no tenderness. Skin: No rashes, no erythema, no cyanosis. - Labs CBC & Chem 7: 09/23/17 06:07 09/23/17 06:07 Labs: Abnormal Lab Results - Last 24 Hours (Table) 09/22/17 09/22/17 09/23/17 Range/Units 16:55 21:24 06:02 PT (9.0-12.0) sec INR (<1.2) Chloride (98-107) mmol/L Carbon Dioxide (22-30) mmol/L Glucose (74-99) mg/dL POC Glucose (mg/dL) 117 H 259 H 141 H (75-99) mg/dL 09/23/17 09/23/17 09/23/17 Range/Units 06:07 06:07 11:51 PT 32.9 H (9.0-12.0) sec INR 3.4 H (<1.2) Chloride 96 L (98-107) mmol/L Carbon Dioxide 33 H (22-30) mmol/L Glucose 132 H (74-99) mg/dL POC Glucose (mg/dL) 193 H (75-99) mg/dL Microbiology - Last 24 Hours (Table) 09/18/17 19:30 Blood Culture - Preliminary Blood No Growth after 96 hours Assessment and Plan Plan: Impression: 1 acute hypoxic respiratory failure secondary to diastolic congestive heart failure, and secondary to atrial fibrillation with RVR, and underlying valvular heart disease. And pulmonary hypertension which seems to be moderate in severity based on the echocardiogram. There is also moderate mitral regurgitation Echocardiogram report was noted. 2 multiple comorbidities including chronic atrial fibrillation, diabetes, history of deep vein thrombosis, hypertension, obstructive sleep apnea syndrome , valvular heart disease, previous deep vein thromboses and inferior vena cava filter placement. Recommendation: Continue patient on oral diuretics Lasix 40 mg by mouth twice a day, patient is stable for discharge home today. Patient should have follow-up with her chief analytics officer and primary care physician post discharge. I performed a history & physical examination of the patient and discussed their management with my nurse practitioner, Hannah Silverman. I reviewed the nurse practitioner's note and agree with the documented findings and plan of care. Lung sounds are clear. The findings and the impression was discussed with the patient. I attest to the documentation by the nurse practitioner. Time with Patient: Less than 30
--- NOTE | 2017-09-23 15:02 | P.DS ---
Providers Date of admission: 09/18/17 21:31 Attending physician: Kiki Palm Consults: 09/18/17 21:31 Consult Physician Stat Consulting Provider: Skye Nguyen Consult Reason/Comments: Myocardial infarction, atrial fibrillation with a fast ventricular rate Do you want consulting provider notified?: Yes Consult Physician Stat Consulting Provider: Filemon Gaviria Consult Reason/Comments: Respiratory failure Do you want consulting provider notified?: Yes Primary care physician: Karl Bennett [facility] Course: This 79-year-old woman with a past medical history multiple medical problems was admitted with CHF acute exacerbation the patient had acute on chronic diastolic dysfunction. Patient was treated with diuretics and other medications. Patient improved significantly. Cardiology saw the patient. Patient also had respirator failure possibly secondary to CHF. Patient will require further evaluation of the lungs status and to exclude COPD in the outpatient setting. Improved significantly. Patient will be discharged in a stable condition with guarded prognosis. ECF rehab was suggested.However the patient is able to ambulate now and the patient has adequate family support at home. I recommended the patient to follow-up with the primary physician and public administration professor. Total time taken 35 minutes. On exam vitals are stable. Cardio S1 and S2 normal. Respirator system few scattered rhonchi. Abdomen soft nontender. Nervous system no focal deficit. Final diagnosis 1. CHF acute exacerbation with acute on chronic diastolic dysfunction ejection fraction 50-60%. 2. Moderate mitral regurgitation and tricuspid regurgitation. 3. Atrial fibrillation with fast ventricular rate. 4. Acute hypoxic respiratory failure secondary to congestive heart failure. 5. Diabetes mellitus type 2. 6. Elevated troponin possibly type II non-ST segment elevation myocardial infarction secondary to demand ischemia. 7. Hypertension. 8. Valvular heart disease. 9. History of DVT. 10. Gait dysfunction. 11. Full code. Patient Condition at Discharge: Good Plan - Discharge Summary New Discharge Prescriptions: New Diltiazem Cd [Cardizem CD] 120 mg PO DAILY #30 cap.er.24h Furosemide [Lasix] 40 mg PO BID@0900,1600 #60 tab Metoprolol Tartrate [Lopressor] 75 mg PO TID #270 tab Albuterol Inhaler [Ventolin Hfa Inhaler] 2 puff INHALATION QID #1 inhaler Continue Acetaminophen [Tylenol] 325 mg PO Q4H PRN PRN Reason: Pain Aspirin [Adult Low Dose Aspirin EC] 81 mg PO DAILY Atorvastatin Calcium [Lipitor] 20 mg PO DAILY Cholecalciferol [Vitamin D3] 2,000 unit PO DAILY Cranberry Fruit Extract [Cranberry] 200 mg PO BID Digoxin [Lanoxin] 125 mcg PO DAILY Ferrous Sulfate [Iron] 325 mg PO BID glipiZIDE [Glucotrol] 2.5 mg PO BID Insulin Glargine,Hum.rec.anlog [Lantus Solostar] 33 unit SQ DAILY Insulin Glargine,Hum.rec.anlog [Lantus Solostar] 32 unit SQ HS L.acidoph,Paracasei, B.lactis [Probiotic] 1 cap PO BID Magnesium Chloride [Mag64] 64 mg PO DAILY Multivitamins, Thera [Multivitamin (formulary)] 1 tab PO DAILY Omeprazole [PriLOSEC] 20 mg PO BID Potassium Chloride [Klor-Con 20] 20 meq PO DAILY Vit C/E/Zn/Coppr/Lutein/Zeaxan [Preservision Areds 2 Softgel] 1 cap PO DAILY Discontinued Diltiazem HCl [Diltiazem ER] 180 mg PO DAILY Furosemide [Lasix] 40 mg PO DAILY Metoprolol Tartrate [Lopressor] 50 mg PO BID Warfarin Sodium 1 mg PO MOWEFR Warfarin Sodium [Coumadin] 6 mg PO DAILY Discharge Medication List Acetaminophen [Tylenol] 325 mg PO Q4H PRN 09/18/17 [History] Aspirin [Adult Low Dose Aspirin EC] 81 mg PO DAILY 09/18/17 [History] Atorvastatin Calcium [Lipitor] 20 mg PO DAILY 09/18/17 [History] Cholecalciferol [Vitamin D3] 2,000 unit PO DAILY 09/18/17 [History] Cranberry Fruit Extract [Cranberry] 200 mg PO BID 09/18/17 [History] Digoxin [Lanoxin] 125 mcg PO DAILY 09/18/17 [History] Ferrous Sulfate [Iron] 325 mg PO BID 09/18/17 [History] Insulin Glargine,Hum.rec.anlog [Lantus Solostar] 32 unit SQ HS 09/18/17 [History ] Insulin Glargine,Hum.rec.anlog [Lantus Solostar] 33 unit SQ DAILY 09/18/17 [ History] L.acidoph,Paracasei, B.lactis [Probiotic] 1 cap PO BID 09/18/17 [History] Magnesium Chloride [Mag64] 64 mg PO DAILY 09/18/17 [History] Multivitamins, Thera [Multivitamin (formulary)] 1 tab PO DAILY 09/18/17 [History ] Omeprazole [PriLOSEC] 20 mg PO BID 09/18/17 [History] Potassium Chloride [Klor-Con 20] 20 meq PO DAILY 09/18/17 [History] Vit C/E/Zn/Coppr/Lutein/Zeaxan [Preservision Areds 2 Softgel] 1 cap PO DAILY 06/27 [History] glipiZIDE [Glucotrol] 2.5 mg PO BID 09/18/17 [History] Albuterol Inhaler [Ventolin Hfa Inhaler] 2 puff INHALATION QID #1 inhaler [Rx] Diltiazem Cd [Cardizem CD] 120 mg PO DAILY #30 cap.er.24h 09/23/17 [Rx] Furosemide [Lasix] 40 mg PO BID@0900,1600 #60 tab 09/23/17 [Rx] Metoprolol Tartrate [Lopressor] 75 mg PO TID #270 tab 09/23/17 [Rx] Follow up Appointment(s)/Referral(s): Karl Bennett MD [Primary Care Provider] - 10/01/17 3:00 pm Jordi Bridges MD [REFERRING] - 09/27/17 2:30 pm () Ambulatory/Diagnostic Orders: Prothrombin Time INR [LAB.AMB] Time Frame: 3 Days, Location: Determined By Patient Activity/Diet/Wound Care/Special Instructions: Hold Coumadin 2 days, repeat INR and resume as per PCP .Confirm cardiology follow-up appointment prior to discharge. O2 sat on room air after ambulation 93% [facility]: [phone] Diet: Cardiac Activity: Limited until follow up
[2017-09-23] MEDS ORDERED: FUROSEMIDE 40 MG TAB PO SCH (16:00)
== END 2017-09-23 15:40 | disposition home health service (06) | DRG 280 ==
LOC: EC 19:20 → 6ICU 21:31 → 6SEL 09-20 19:04
PROVIDERS: ADMIT Hospitalist; ATTEND Hospitalist
DX: I11.0 Hypertensive heart disease with heart failure (principal); I21.A1 Myocardial infarction type 2; J96.21 Acute and chronic respiratory failure with hypoxia; J18.9 Pneumonia, unspecified organism; I47.2 Ventricular tachycardia; I69.354 Hemiplegia and hemiparesis following cerebral infarction affecting left non-dominant side; I27.20 Pulmonary hypertension, unspecified; I48.0 Paroxysmal atrial fibrillation; N39.0 Urinary tract infection, site not specified; I50.43 Acute on chronic combined systolic (congestive) and diastolic (congestive) heart failure; E11.9 Type 2 diabetes mellitus without complications; E78.5 Hyperlipidemia, unspecified; G47.33 Obstructive sleep apnea (adult) (pediatric); I08.1 Rheumatic disorders of both mitral and tricuspid valves; I35.0 Nonrheumatic aortic (valve) stenosis; I45.4 Nonspecific intraventricular block; I48.2 Chronic atrial fibrillation; Z79.01 Long term (current) use of anticoagulants; Z79.4 Long term (current) use of insulin; Z79.82 Long term (current) use of aspirin; Z79.899 Other long term (current) drug therapy; Z86.711 Personal history of pulmonary embolism; Z86.718 Personal history of other venous thrombosis and embolism; Z88.0 Allergy status to penicillin
CPT/HCPCS: 36415; 36600; 71010; 71275; 80048; 80053; 81001; 82550; 82553; 82805; 83036; 83605; 83735; 83880; 84100; 84484; 85025; 85379; 85610; 85730; 87040; 87086; 93005; 93306; 94640; 94660; 94760; 96361; 96365; 96366; 96368; 96375; 99291